=== PATIENT | male | born 1925 | race Caucasian/White ===

== ENCOUNTER 2016-10-31 05:01 | Inpatient (IN) ==
--- OUTSIDE RECORDS SUMMARY | 2016-10-31 05:11 | External Medical Summary | Referral Summary ---
:1925 Author Organization [facility] Address [address] [place] [address] Care Team Providers Name Role Phone Rodolfo Vargas Primary Care Physician Encounter VC Date(s): 06/03/15 - 06/03/15 [facility] [address] [place] [address] - us Discharge Diagnosis: Hyperlipemia Discharge Diagnosis: Hyperthyroidism Discharge Diagnosis: Long-term current use of insulin for diabetes mellitus Discharge Diagnosis: Type 2 diabetes mellitus, uncontrolled Discharge Diagnosis: Diabetic renal disease Discharge Diagnosis: Benign essential hypertension Discharge Disposition: 01-Home or Self Care Attending Physician: Morenita Boyd APRN Admitting Physician: Morenita Boyd APRN Vital Signs Most recent to oldest [Reference Range]: 1 Peripheral Pulse Rate [60-100 bpm] 76 bpm (06/03/15 2:18 PM) Blood Pressure [90-140/60-90 mmHg] 140/60 mmHg (06/03/15 2:18 PM) Problem List Condition Effective Dates Status Health Status Informant Hyperthyroidism(Confirmed) Active Benign essential hypertension Active (disorder)(Confirmed) Diabetic renal disease Active (disorder)(Confirmed) Gangrene back(Confirmed) Active retirement current use of Active insulin(Confirmed) Hyperlipemia(Confirmed) Active Obesity (disorder)(Confirmed) Active Diabetes type 2, controlled(Confirmed) Active Allergies, Adverse Reactions, Alerts Substance Reaction Severity Status penicillin Unknown Active Medications aspirin 81 mg, Oral, Daily, 0 Refill(s) Start Date: 11/13/13 Status: Orderedatenolol 50 mg oral tablet 0.5 tabs, Oral, Daily, # 30 tabs, 3 Refill(s), Pharmacy: [facility], 0.5 tabs Oral Daily Start Date: 08/21/13 Status: OrderedBD UF II SHORT 05/15 SYG See Instructions, INJECT TWICE DAILY, # 100 tabs, 2 Refill(s), eRx: [facility], INJECT TWICE DAILY Start Date: 08/23/13 Status: OrderedCentrum Daily, 0 Refill(s) Start Date: 11/13/13 Status: OrderedFish Oil Oral, 0 Refill(s) Start Date: 02/13/15 Status: OrderedGlucometer strips (DME) DME Item accu check smart test strips check blood sugar 4 times daily, 3 days/ week dx 250.02, See Instructions, # 300 Each, 3 Refill(s), Pharmacy: [facility], accu check smart test strips;check blood sugar 4 times daily, 3 days/week; dx... Start Date: 03/14/14 Status: OrderedHumaLOG Mix 75/25 subcutaneous suspension See Instructions, 19 units in am and 30 units pm SubCutaneous, # 4 vials, 0 Refill(s), other reason (Rx) Start Date: 05/31/14 Status: OrderedI-Hawa oral tablet tabs, Oral, Daily, 0 Refill(s) Start Date: 02/13/15 Status: Orderedmagnesium oxide See Instructions, Oral, 0 Refill(s) Start Date: 11/13/13 Status: Orderedmethimazole 10 mg oral tablet See Instructions, TAKE ONE-HALF TABLET BY MOUTH ONCE DAILY, # 45 tabs, 3 Refill( s), Pharmacy: [id number], TAKE ONE-HALF TABLET BY MOUTH ONCE DAILY Start Date: 06/03/15 Status: Orderednitroglycerin 0 Refill(s) Start Date: 02/13/15 Status: Orderednitroglycerin 0.4 mg sublingual tablet 0.4 mg 1 tabs, SubLingual, q5min, as needed for chest pain, # 100 tabs, 0 Refill (s) Start Date: 06/03/15 Status: OrderedNorvasc 5 mg oral tablet 1 tabs, Oral, Daily, # 30 tabs, 0 Refill(s) Start Date: 11/13/13 Status: OrderedPotaba 500 mg oral tablet 0 Refill(s) Start Date: 11/13/13 Status: OrderedViagra Oral, Daily, 0 Refill(s) Start Date: 02/13/15 Status: OrderedVitamin D with Minerals oral tablet 1 tabs, Oral, Daily, # 30 tabs, 0 Refill(s) Start Date: 11/13/13 Status: OrderedVitamin D3 2000 intl units oral tablet Intl_Units tabs, Oral, Daily, 0 Refill(s) Start Date: 02/13/15 Status: Ordered Results Chemistry Most recent to oldest [Reference Range]: 1 Hgb A1c [4.1-5.6 %] 7.5 % *HI* (06/03/15 3:09 PM) eAvg Glucose 168.6 mg/dL (06/03/15 3:09 PM) Immunizations No data available for this section Procedures Procedure Date Related Diagnosis Body Site Back surgery 1974 Appendectomy 1940 5 bypass heart surgery Social History Social History Type Response Smoking Status Current some day smoker; Type: Cigars Assessment and Plan Extracted from: Title: Office Visit Note Author: Morenita Boyd MENTAL HEALTH CONSULTANT Date: 06/03/15 Assessment/Plan 1.Type 2 diabetes mellitus, uncontrolled 1. check blood sugars fasting and 2 hours after meals 3-7 days per week 2. increase am insulin to 19 units and pm insulin to 30 units 3. rotate injection sites 4. monitor diet and exercise 5. monitor feet daily I discussed the patient with the preceptor. Ordered: Albumin/Creatinine Ratio, Urine Hemoglobin A1c Office Visit Level 4 Est 48882 2.Long-term current use of insulin for diabetes mellitus Ordered: Albumin/Creatinine Ratio, Urine Hemoglobin A1c Office Visit Level 4 Est 53608 3.Benign essential hypertension Ordered: Albumin/Creatinine Ratio, Urine Hemoglobin A1c Office Visit Level 4 Est 38638 4.Diabetic renal disease Ordered: Albumin/Creatinine Ratio, Urine Hemoglobin A1c Office Visit Level 4 Est 35029 5.Hyperlipemia Ordered: Albumin/Creatinine Ratio, Urine Hemoglobin A1c Office Visit Level 4 Est 47828 6.Hyperthyroidism Orders: insulin lispro protamine-insulin lispro, See Instructions, 19 units in am and 30 units pm SubCutaneous, # 4 vials, 0 Refill(s), other reason (Rx) methimazole, See Instructions, TAKE ONE-HALF TABLET BY MOUTH ONCE DAILY, # 45 tabs, 3 Refill(s), Pharmacy: [id number], TAKE ONE-HALF TABLET BY MOUTH ONCE DAILY Extracted from: Title: Ambulatory Patient Education Author: Morenita Boyd APRN Date: 06/02 Obstetrics and Gynecology Diabetes and Sick Day Management Blood sugar (glucose) can be more difficult to control when you are sick. Colds , fever, flu, nausea, vomiting, and diarrhea are all examples of common illnesses that can cause problems for people with d iabetes. Loss of body fluids (dehydration) from fever, vomiting, diarrhea, infection, and the stress of a sickness can all cause blood glucose levels to increase. Because of this, it is very important t o take your diabetes medicines and to eat some form of carbohydrate food when you are sick. Liquid or soft foods are often tolerated, and they help to replace fluids. HOME CARE INSTRUCTIONS These main guidelines are intended for managing a short-term (24 hours or less ) sickness: Take your usual dose of insulin or oral diabetes medicine. An exception would be if you take any form of metformin. If you cannot eat or drink, you can become dehydrated and should not take this medicine. Continue to take your insulin even if you are unable to eat solid foods or are vomiting. Your insulin dose may stay the same, or it may need to be increased when you are sick. You will need to test your blood glucose more often, generally every 2 4 hours. If you have type 1 diabetes, test your urine for ketones every 4 hours. If you have type 2 diabetes, test your ur ine for ketones as directed by your health care provider. Eat some form of food that contains carbohydrates. The carbohydrates can be in solid or liquid form. You should eat 4550 g of carbohydrates every 34 hours. Replace fluids if you have a fever, vomit, or have diarrhea. Ask your health care provider for specific rehydration instructions. Watch carefully for the signs of ketoacidosis if you have type 1 diabetes. Call your health care provider if any of the following symptoms are present, especially in children: Moderate to large ketones in the urine along with a high blood glucose level. Severe nausea. Vomiting. Diarrhea. Abdominal pain. Rapid breathing. Drink extra liquids that do not contain sugar such as water. Be careful with [id number]-rfpbrna medicines. Read the labels. They may contain sugar or types of sugars that can increase your blood glucose level. Food Choices for Illness All of the food choices below contain about 15 g of carbohydrates. Plan ahead and keep some of these foods around. to cup carbonated beverage containing sugar. Carbonated beverages will usually be better tolerated if they are opened and left at room temperature for a few minutes. of a twin frozen ice pop. cup regular gelatin. cup juice. cup ice cream or frozen yogurt. cup cooked cereal. cup sherbet. 1 cup clear broth or soup. 1 cup cream soup. cup regular custard. cup regular pudding. 1 cup sports drink. 1 cup plain yogurt. 1 slice toast. 6 squares saltine crackers. 5 vanilla wafers. SEEK MEDICAL CARE IF: You are unable to drink fluids, even small amounts. You have nausea and vomiting for more than 6 hours. You have diarrhea for more than 6 hours. Your blood glucose level is more than 240 mg/dL, even with additional insulin. There is a change in mental status. You develop an additional serious sickness. You have been sick for 2 days and are not getting better. You have a fever. SEEK IMMEDIATE MEDICAL CARE IF: You have difficulty breathing. You have moderate to large ketone levels. MAKE SURE YOU: Understand these instructions. Will watch your condition. Will get help right away if you are not doing well or get worse. This information is not intended to replace advice given to you by your health care provider. Make sure you discuss any questions you have with your health care provider. Document Released: 02/25/2004 Document Revised: 07/09/2014 Document Reviewed: 08/01/2013 ExitCare Patient Information 2015 [employer], [facility]. No follow up information was provided.
--- OUTSIDE RECORDS SUMMARY | 2016-10-31 05:11 | External Medical Summary ---
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
--- OUTSIDE RECORDS SUMMARY | 2016-10-31 05:11 | External Medical Summary | Referral Summary ---
:1925 Author Organization [facility] Address [address] [place] [address] Care Team Providers Name Role Phone Rodolfo Vargas Primary Care Physician Encounter VC Date(s): 09/27/14 - 09/27/14 [facility] [address] [place] [address] - [place] Discharge Diagnosis: Diabetes type 2, controlled Discharge Diagnosis: assisted current use of insulin Discharge Diagnosis: Benign essential hypertension Discharge Diagnosis: Hyperlipemia Discharge Diagnosis: Hyperthyroidism Discharge Diagnosis: Diabetic renal disease Discharge Disposition: 01-Home or Self Care Attending Physician: Morenita Boyd APRN Admitting Physician: Morenita Boyd APRN Vital Signs Most recent to oldest [Reference Range]: 1 Peripheral Pulse Rate [60-100 bpm] 76 bpm (09/27/14 10:11 AM) Blood Pressure [90-140/60-90 mmHg] 140/80 mmHg (09/27/14 10:11 AM) Problem List Condition Effective Dates Status Health Status Informant Benign essential hypertension Active (disorder)(Confirmed) Diabetic renal disease Active (disorder)(Confirmed) Gangrene back(Confirmed) Active assisted current use of Active insulin(Confirmed) Hyperlipemia(Confirmed) Active Hyperthyroidism(Confirmed) Active Obesity (disorder)(Confirmed) Active Diabetes type 2, controlled(Confirmed) Active Allergies, Adverse Reactions, Alerts Substance Reaction Severity Status penicillin Unknown Active Medications aspirin 0 Refill(s) Start Date: 11/13/13 Status: Orderedatenolol 50 mg oral tablet 0.5 tabs, Oral, Daily, # 30 tabs, 3 Refill(s), Pharmacy: [facility], 0.5 tabs Oral Daily Start Date: 08/21/13 Status: OrderedBD UF II SHORT 05/15 SYG See Instructions, INJECT TWICE DAILY, # 100 tabs, 2 Refill(s), eRx: [facility], INJECT TWICE DAILY Start Date: 08/23/13 Status: OrderedCentrum Daily, 0 Refill(s) Start Date: 11/13/13 Status: OrderedFish Oil Oral, 0 Refill(s) Start Date: 11/13/13 Status: OrderedGlucometer strips (DME) DME Item accu check smart test strips check blood sugar 4 times daily, 3 days/ week dx 250.02, See Instructions, # 300 Each, 3 Refill(s), Pharmacy: [facility], accu check smart test strips;check blood sugar 4 times daily, 3 days/week; dx... Start Date: 03/14/14 Status: OrderedHumaLOG Mix 75/25 subcutaneous suspension See Instructions, 17 units in am and 26 units pm SubCutaneous, # 4 vials, 0 Refill(s), other reason (Rx) Start Date: 05/31/14 Status: OrderedLipitor 40 mg oral tablet 1 tabs, Oral, Daily, # 30 tabs, 0 Refill(s) Start Date: 11/13/13 Status: Orderedlisinopril 20 mg oral tablet tabs, Oral, Daily, 0 Refill(s) Start Date: 11/13/13 Status: Orderedmagnesium oxide See Instructions, Oral, 0 Refill(s) Start Date: 11/13/13 Status: Orderedmethimazole 10 mg oral tablet See Instructions, TAKE ONE-HALF TABLET BY MOUTH ONCE DAILY, # 45 tabs, 1 Refill( s), eRx: [facility], TAKE ONE-HALF TABLET BY MOUTH ONCE DAILY Start Date: 08/22/14 Status: OrderedNorvasc 5 mg oral tablet 1 tabs, Oral, Daily, # 30 tabs, 0 Refill(s) Start Date: 11/13/13 Status: OrderedOcuvite tabs, Oral, Daily, 0 Refill(s) Start Date: 11/13/13 Status: OrderedPotaba 500 mg oral tablet 0 Refill(s) Start Date: 11/13/13 Status: OrderedVitamin D with Minerals oral tablet 1 tabs, Oral, Daily, # 30 tabs, 0 Refill(s) Start Date: 11/13/13 Status: Ordered Results Chemistry Most recent to oldest [Reference Range]: 1 Hgb A1c [4.1-5.6 %] 6.9 % *HI* (09/27/14 10:55 AM) eAvg Glucose 151.3 mg/dL (09/27/14 10:55 AM) Immunizations No data available for this section Procedures Procedure Date Related Diagnosis Body Site Back surgery 1975 Appendectomy 194 5 bypass heart surgery Social History Social History Type Response Smoking Status Current some day smoker; Type: Cigars Assessment and Plan Extracted from: Title: Office Visit Note Author: Morenita Boyd CATALYST SUPERVISOR Date: 09/27/14 Assessment/Plan 1.Diabetes type 2, controlled 1. check blood sugars fasting and 2 hours after meals 3-7 days per week 2. continue same doses of insulin 3. rotate injection sites 4. monitor diet and exercise 5. monitor feet daily I discussed the patient with the preceptor. Ordered: Hemoglobin A1c Office Visit Level 3 Est 99724 2.exterminator current use of insulin Ordered: Office Visit Level 3 Est 50850 3.Benign essential hypertension Ordered: Office Visit Level 3 Est 03172 4.Hyperlipemia Ordered: Office Visit Level 3 Est 80958 5.Hyperthyroidism Ordered: Office Visit Level 3 Est 90108 6.Diabetic renal disease Ordered: Office Visit Level 3 Est 62699 Extracted from: Title: Ambulatory Patient Education Author: Morenita Boyd CATALYST SUPERVISOR Date: 09/27 Family Medicine How to Avoid Diabetes Problems You can do a lot to prevent or slow down diabetes problems. Following your diabetes plan and taking care of yourself can reduce your risk of serious or life-threatening complications. Below, you will fi nd certain things you can do to prevent diabetes problems. MANAGE YOUR DIABETES Follow your caregiver's, nurse educator's, and dietitian's instructions for managing your diabetes. They will teach you the basics of diabetes care. They can help answer questions you may have. Learn ab out diabetes and make healthy choices regarding eating and physical activity. Monitor your blood glucose level regularly. Your caregiver will help you decide how often to check your blood glucose level depending on your treatment goals and how well you are meeting them. DO NOT SMOKE Smoking and diabetes are a dangerous combination. Smoking raises your risk for diabetes problems. If you quit smoking, you will lower your risk for heart attack, stroke, nerve disease, and kidney diseas e. Your cholesterol and your blood pressure levels may improve. Your blood circulation will also improve. If you smoke, ask your caregiver for help in quitting. KEEP YOUR BLOOD PRESSURE UNDER CONTROL Keeping your blood pressure under control will help prevent damage to your eyes , kidneys, heart, and blood vessels. Blood pressure consists of two numbers. The top number should be below 120, and the tu ttom number should be below 80 (120/80). Keep your blood pressure as close to these numbers as you can. If you already have kidney disease, you may want even lower blood pressure to protect your kidneys . Talk to your caregiver to make sure that your blood pressure goal is right for your needs. Meal planning, medicines, and exercise can help you reach your blood pressure target. Have your blood pressure checked at every visit with your caregiver. KEEP YOUR CHOLESTEROL UNDER CONTROL Normal cholesterol levels will help prevent heart disease and stroke. These are the biggest health problems for people with diabetes. Keeping cholesterol levels under control can also help with blood fl ow. Have your cholesterol level checked at least once a year. Meal planning, exercise, and medicines can help you reach your cholesterol targets. SCHEDULE AND KEEP YOUR ANNUAL PHYSICAL EXAMS AND EYE EXAMS Your caregiver will tell you how often he or she wants to see you depending on your plan of treatment. It is important that you keep these appointments so that possible problems can be identified early and complications can be avoided or treated. Every visit with your caregiver should include your weight, blood pressure , and an evaluation of your blood glucose control. Your hemoglobin A1c should be checked: At least twice a year if you are at your goal. Every 3 months if there are changes in treatment. If you are not meeting your goals. Your blood lipids should be checked yearly. You should also be checked yearly to see if you have protein in your urine (microalbumin). Schedule a dilated eye exam if you have type 1 diabetes within 5 years of your diagnosis and then yearly. Schedule a dilated eye exam if you have type 2 diabetes at diagnosis and then yearly. All e xams thereafter can be extended to every 2 to 3 years if one or more exams have been normal. KEEP YOUR VACCINES CURRENT The flu vaccine is recommended yearly. The formula for the vaccine changes every year and needs to be updated for the best protection against current viruses. In addition, you should get a vaccination a gainst pneumonia at least once in your life. However, there are some instances where another vaccine is recommended. Check with your caregiver. TAKE CARE OF YOUR FEET Diabetes may cause you to have a poor blood supply (circulation) to your legs and feet. Because of this, the skin may be thinner, break easier, and heal more slowly. You also may have nerve damage in yo ur legs and feet causing decreased feeling. You may not notice minor injuries to your feet that could lead to serious problems or infections. Taking care of your feet is very important. Visual foot exams are performed at every routine medical visit. The exams check for cuts, injuries, or other problems with the feet. A comprehensive foot exam should be done yearly. This includes visual inspection as well as assessing foot pulses and testing for loss of sensation. You should also do the following: Inspect your feet daily for cuts, calluses, blisters, ingrown toenails, and signs of infection, such as redness, swelling, or pus. Wash and dry your feet thoroughly, especially between the toes. Avoid soaking your feet regularly in hot water baths. Moisturize dry skin with lotion, avoiding areas between your toes. Cut toenails straight across and file the edges. Avoid shoes that do not fit well or have areas that irritate your skin. Avoid going barefooted or wearing only socks. Your feet need protection. TAKE CARE OF YOUR TEETH People with poorly controlled diabetes are more likely to have gum (periodontal ) disease. These infections make diabetes harder to control. Periodontal diseases, if left untreated, can lead to tooth los s. [place] your teeth twice a day, floss, and see your dentist for checkups and cleaning every 6 months, or 2 times a year. ASK YOUR CAREGIVER ABOUT TAKING ASPIRIN Taking aspirin daily is recommended to help prevent cardiovascular disease in people with and without diabetes. Ask your caregiver if this would benefit you and what dose he or she would recommend. DRINK RESPONSIBLY Moderate amounts of alcohol (less than 1 drink per day for adult women and less than 2 drinks per day for adult men) have a minimal effect on blood glucose if ingested with food. It is important to eat food with alcohol to avoid hypoglycemia. People should avoid alcohol if they have a history of alcohol abuse or dependence, if they are , and if they have liver disease, pancreatitis, advanced neuropathy, or severe hypertriglyceridemia. LESSEN STRESS Living with diabetes can be stressful. When you are under stress, your blood glucose may be affected in two ways: Stress hormones may cause your blood glucose to rise. You may be distracted from taking good care of yourself. It is a good idea to be aware of your stress level and make changes that are necessary to help you better manage challenging situations. Support groups, planned relaxation, a hobby you enjoy, meditation , healthy relationships, and exercise all work to lower your stress level. If your efforts do not seem to be helping, get help from your caregiver or a trained mental health professional. Document Released: 11/10/2011 Document Revised: 02/08/2013 Document Reviewed: 11/10/2011 ExitCare Patient Information 2015 [facility], [place] [employer]. This information is not intended to replace advice given to you by your health care provider. Make sure you discuss any questions you have with your health care provider. No follow up information was provided.
--- OUTSIDE RECORDS SUMMARY | 2016-10-31 05:11 | External Medical Summary | Referral Summary ---
:1925 Author Organization [facility] Address [address] [place] [address] Care Team Providers Name Role Phone Rodolfo Vargas Primary Care Physician Encounter VC Date(s): 09/27/14 - 09/27/14 [facility] [address] [place] [address] - [place] Discharge Diagnosis: Diabetes type 2, controlled Discharge Diagnosis: prison current use of insulin Discharge Diagnosis: Benign [...] renal disease Active (disorder)(Confirmed) Gangrene back(Confirmed) Active prison current use of Active insulin(Confirmed) Hyperlipemia(Confirmed) Active Hyperthyroidism(Confirmed) Active Obesity (disorder)(Confirmed) Active Diabetes type 2, controlled(Confirmed) Active Allergies, Adverse Reactions, Alerts Substance Reaction Severity Status penicillin Unknown Active Medications aspirin 0 Refill(s) Start Date: 11/13/13 Status: Orderedatenolol 50 mg oral tablet 0.5 tabs, Oral, Daily, # 30 tabs, 3 Refill(s), Pharmacy: [facility], 0.5 tabs Oral Daily Start Date: 08/21/13 Status: OrderedBD UF II SHORT 05/15 SYG See Instructions, INJECT TWICE DAILY, # 100 tabs, 2 Refill(s), eRx: [facility], INJECT TWICE DAILY Start Date: 08/23/13 Status: OrderedCentrum Daily, 0 Refill(s) Start Date: 11/13/13 Status: OrderedFish Oil Oral, 0 Refill(s) Start Date: 11/13/13 Status: OrderedGlucometer strips (DME) DME Item accu check smart test strips check blood sugar 4 times daily, 3 days/ week dx 250.02, See Instructions, # 300 Each, 3 Refill(s), Pharmacy: [facility], accu check smart test strips;check [...] # 45 tabs, 1 Refill( s), eRx: [facility], TAKE ONE-HALF TABLET BY MOUTH [...] Title: Office Visit Note Author: Morenita Boyd WINDOW REPAIRER Date: 09/27/14 Assessment/Plan 1.Diabetes type 2, controlled 1. check blood sugars fasting and 2 hours after meals 3-7 days per week 2. continue same doses of insulin 3. rotate injection sites 4. monitor diet and exercise 5. monitor feet daily I discussed the patient with the preceptor. Ordered: Hemoglobin A1c Office Visit Level 3 Est 73637 2.prison current use of insulin Ordered: Office Visit Level 3 Est 90786 3.Benign essential hypertension Ordered: Office Visit Level 3 Est 73895 4.Hyperlipemia Ordered: Office Visit Level 3 Est 63892 5.Hyperthyroidism Ordered: Office Visit Level 3 Est 34476 6.Diabetic renal disease Ordered: Office Visit Level 3 Est 42983 Extracted from: Title: Ambulatory Patient Education Author: Morenita Boyd WINDOW REPAIRER Date: 09/27 Family Medicine How to Avoid [...] untreated, can lead to tooth los s. [place] your teeth twice a day, floss, and [...] Document Reviewed: 11/10/2011 ExitCare Patient Information 2015 [employer]. This information is not intended to replace advice given to you by your health care provider. Make sure you discuss any questions you have with your health care provider. No follow up information was provided.
--- OUTSIDE RECORDS SUMMARY | 2016-10-31 05:11 | External Medical Summary | Referral Summary ---
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 Discharge Diagnosis: Diabetes type 2, controlled Discharge Diagnosis: Benign essential hypertension Discharge Diagnosis: Hyperthyroidism Discharge Disposition: 01-Home or Self Care Attending Physician: Morenita Boyd APRN Admitting Physician: Morenita Boyd APRN Vital Signs Most recent to oldest [Reference Range]: 1 Peripheral Pulse Rate [60-100 bpm] 80 bpm (04/24/16 10:55 AM) Blood Pressure [90-140/60-90 mmHg] 140/70 mmHg (04/24/16 10:55 AM) Problem List Condition Effective Dates Status Health Status Informant Hyperthyroidism(Confirmed) Active Benign essential hypertension Active (disorder)(Confirmed) 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 Active (disorder)(Confirmed) Gangrene back(Confirmed) Active senior living current use of Active insulin(Confirmed) Hyperthyroidism(Confirmed) Active Hyperlipemia(Confirmed) Active Obesity (disorder)(Confirmed) Active Diabetes type 2, controlled(Confirmed) Active Allergies, Adverse Reactions, Alerts Substance Reaction Severity Status penicillin Unknown Active Medications aspirin 81 mg, Oral, Daily, 0 Refill(s) Start Date: 11/13/13 Status: Orderedatenolol 50 mg oral tablet 0.5 tabs, Oral, Daily, # 30 tabs, 3 Refill(s), Pharmacy: [facility], 0.5 tabs Oral Daily Start Date: 08/21/13 Status: OrderedBD UF II SHORT 05/15 SYG See Instructions, INJECT TWICE DAILY, # 100 tabs, 2 Refill(s), eRx: [facility], INJECT TWICE DAILY Start Date: 08/23/13 Status: OrderedCentrum Daily, 0 Refill(s) Start Date: 11/13/13 Status: OrderedFish Oil Oral, 0 Refill(s) Start Date: 02/13/15 Status: OrderedGlucometer strips (DME) DME Item accu check smart test strips check blood sugar 4 times daily, 3 days/ week dx 250.02, See Instructions, # 300 Each, 3 Refill(s), Pharmacy: [facility], accu check smart test strips;check blood sugar 4 times daily, 3 days/week; dx... Start Date: 03/14/14 Status: OrderedHumaLOG Mix 75/25 subcutaneous suspension See Instructions, 19 units in am and 30 units pm SubCutaneous, # 4 vials, 0 Refill(s), other reason (Rx) Start Date: 05/31/14 Status: OrderedI-Hawa oral tablet tabs, Oral, Daily, 0 Refill(s) Start Date: 02/13/15 Status: Orderedlisinopril 2.5 mg oral tablet 2.5 mg 1 tabs, Oral, Daily, # 90 tabs, 3 Refill(s), Pharmacy: [facility] Start Date: 09/18/15 Status: Orderedmagnesium oxide See Instructions, Oral, 0 Refill(s) Start Date: 11/13/13 Status: Orderedmethimazole 10 mg oral tablet See Instructions, TAKE ONE-HALF TABLET BY MOUTH ONCE DAILY, # 45 tabs, 3 Refill( s), Pharmacy: [facility], TAKE ONE-HALF TABLET BY MOUTH ONCE DAILY Start Date: 06/03/15 Status: Orderednitroglycerin 0.4 mg sublingual tablet 0.4 [...] [Reference Range]: 1 Hgb A1c [4.1-5.6 %] 7.4 % *HI* (04/24/16 11:40 AM) eAvg Glucose 165.7 mg/dL (04/24/16 11:40 AM) Immunizations No data available for this section Procedures Procedure Date Related Diagnosis Body Site Back surgery 1974 Appendectomy 1940 5 bypass heart surgery Social History Social History Type Response Smoking Status Current some day smoker; Type: Cigars Assessment and Plan Extracted from: Title: Office Visit Note Author: Morenita Boyd CLASSIFIER TENDER Date: 04/24/16 Assessment/Plan 1.Diabetes type 2, controlled 1.check blood sugars fasting and 2 hours after meals 3-7 days per week 2.pt was encouraged to keep current rx at pharmacy 3.continue current doses of insulin 4.rotate injection sites 5.monitor diet and exercise 6.monitor feet daily I discussed the patient with the preceptor. 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 Your blood glucose level can be greatly affected by what you eat. Eating healthier foods in the appropriate amounts throughout the day at about the same time each day will help you control your blood glucose level. It can also help slow or prevent worsening of your diabetes mellitus. Healthy eating may even help you improve the level of your blood pressure and reach or maintain a healthy weight. General recommendations for healthful eating and cooking habits include: Eating meals and snacks regularly. Avoid going long periods of time without eating to lose weight. Eating a diet that consists mainly of plant-based foods, such as fruits , vegetables, nuts, legumes, and whole grains. Using low-heat cooking methods, such as baking, instead of high-heat cooking methods, such as deep frying. Work with your dietitian to make sure you understand how to use the Nutrition Facts information on food labels. HOW CAN FOOD AFFECT ME? Carbohydrates Carbohydrates affect your blood glucose level more than any other type of food. Your dietitian will help you determine how many carbohydrates to eat at each meal and teach you how to count carbohydrates . Counting carbohydrates is important to keep your blood glucose at a healthy level, especially if you are using insulin or taking certain medicines for diabetes mellitus. Alcohol Alcohol can cause sudden decreases in blood glucose (hypoglycemia), especially if you use insulin or take certain medicines for diabetes mellitus. Hypoglycemia can be a life-threatening condition. Sympt oms of hypoglycemia (sleepiness, dizziness, and disorientation) are similar to symptoms of having too much alcohol. If your health care provider has given you approval to drink alcohol, do so in moderation and use the following guidelines: Women should not have more than one drink per day, and men should not have more than two drinks per day. One drink is equal to: 12 oz of beer. 5 oz of wine. 1 oz of hard liquor. Do not drink on an empty stomach. Keep yourself hydrated. Have water, diet soda, or unsweetened iced tea. Regular soda, juice, and other mixers might contain a lot of carbohydrates and should be counted. WHAT FOODS ARE NOT RECOMMENDED? As you make food choices, it is important to remember that all foods are not the same. Some foods have fewer nutrients per serving than other foods, even though they might have the same number of calori es or carbohydrates. It is difficult to get your body what it needs when you eat foods with fewer nutrients. Examples of foods that you should avoid that are high in calories and carbohydrates but low in nutrients include: Trans fats (most processed foods list trans fats on the Nutrition Facts label). Regular soda. Juice. Candy. Sweets, such as cake, pie, doughnuts, and cookies. Fried foods. WHAT FOODS CAN I EAT? Eat nutrient-rich foods, which will nourish your body and keep you healthy. The food you should eat also will depend on several factors, including: The calories you need. The medicines you take. Your weight. Your blood glucose level. Your blood pressure level. Your cholesterol level. You should eat a variety of foods, including: Protein. Lean cuts of meat. Proteins low in saturated fats, such as fish, egg whites, and beans. Avoid processed meats. Fruits and vegetables. Fruits and vegetables that may help control blood glucose levels, such as apples, mangoes, and yams. Dairy products. Choose fat-free or low-fat dairy products, such as milk, yogurt, and cheese. Grains, bread, pasta, and rice. Choose whole grain products, such as multigrain bread, whole oats, and brown rice. These foods may help control blood pressure. Fats. Foods containing healthful fats, such as nuts, avocado, olive oil, canola oil, and fish. DOES EVERYONE WITH DIABETES MELLITUS HAVE THE SAME MEAL PLAN? Because every person with diabetes mellitus is different, there is not one meal plan that works for everyone. It is very important that you meet with a dietitian who will help you create a meal plan that is just right for you. This information is not intended to replace advice given to you by your health care provider. Make sure you discuss any questions you have with your health care provider. Document Released: 11/19/2005 Document Revised: 03/15/2015 Document Reviewed: 01/19/2014 [employer] Interactive Patient Education 2016 [employer] No follow up information was provided.
--- OUTSIDE RECORDS SUMMARY | 2016-10-31 05:11 | External Medical Summary | Referral Summary ---
:1925 Author Organization [facility] Address [address] [place] [address] Care Team Providers Name Role Phone Rodolfo Vargas Primary Care Physician Encounter VC Date(s): 02/13/15 - 02/13/15 [facility] [address] [place] [address] - [place] Discharge Diagnosis: Hyperthyroidism Discharge Diagnosis: Well controlled type 2 diabetes mellitus Discharge Diagnosis: Hyperlipidemia Discharge Disposition: 01-Home or Self Care Attending Physician: Rl Adkins MD Admitting Physician: Rl Adkins MD Vital Signs Most recent to oldest [Reference Range]: 1 Peripheral Pulse Rate [60-100 bpm] 62 bpm (02/13/15 3:56 PM) Blood Pressure [90-140/60-90 mmHg] 130/80 mmHg (02/13/15 3:56 PM) Problem List Condition Effective Dates Status Health Status Informant Benign essential hypertension Active (disorder)(Confirmed) Diabetic renal disease Active (disorder)(Confirmed) Gangrene back(Confirmed) Active long-term current use of Active insulin(Confirmed) Hyperlipemia(Confirmed) Active Hyperthyroidism(Confirmed) Active Obesity (disorder)(Confirmed) Active Diabetes type 2, controlled(Confirmed) Active Allergies, Adverse Reactions, Alerts Substance Reaction Severity Status penicillin Unknown Active Medications aspirin 0 Refill(s) Start Date: 11/13/13 Status: Orderedatenolol 50 mg oral tablet 0.5 tabs, Oral, Daily, # 30 tabs, 3 Refill(s), Pharmacy: [facility], 0.5 tabs Oral Daily Start Date: 08/21/13 Status: OrderedBD UF II SHORT 3/10 SYG See Instructions, INJECT TWICE DAILY, # 100 tabs, 2 Refill(s), eRx: [facility], INJECT TWICE DAILY Start Date: 08/23/13 Status: OrderedCentrum Daily, 0 Refill(s) Start Date: 11/13/13 Status: OrderedFish Oil Oral, 0 Refill(s) Start Date: 11/13/13 Status: OrderedFish Oil Oral, 0 Refill(s) Start Date: 02/13/15 Status: OrderedGlucometer strips (DME) DME Item accu check smart test strips check blood sugar 4 times daily, 3 days/ week dx 250.02, See Instructions, # 300 Each, 3 Refill(s), Pharmacy: [facility], accu check smart test strips;check blood sugar 4 times daily, 3 days/week; dx... Start Date: 03/14/14 Status: OrderedHumaLOG Mix 75/25 subcutaneous suspension See Instructions, 17 units in am and 28 units pm SubCutaneous, # 4 vials, 0 Refill(s), other reason (Rx) Start Date: 05/31/14 Status: OrderedI-Hawa oral tablet tabs, Oral, Daily, 0 Refill(s) Start Date: 02/13/15 Status: OrderedLipitor 40 mg oral tablet 1 tabs, Oral, Daily, # 30 tabs, 0 Refill(s) Start Date: 11/13/13 Status: Orderedmagnesium oxide See Instructions, Oral, 0 Refill(s) Start Date: 11/13/13 Status: Orderedmethimazole 10 mg oral tablet See Instructions, TAKE ONE-HALF TABLET BY MOUTH ONCE DAILY, # 45 tabs, 1 Refill( s), eRx: [facility], TAKE ONE-HALF TABLET BY MOUTH ONCE DAILY Start Date: 08/22/14 Status: Orderednitroglycerin 0 Refill(s) Start Date: 02/13/15 Status: OrderedNorvasc 5 mg oral tablet 1 [...] Most recent to oldest [Reference Range]: 1 Sodium Lvl [135-144 mEq/L] 141 mEq/L (02/13/15 4:47 PM) Potassium Lvl [3.5-5.2 mEq/L] 4.4 mEq/L (02/13/15 4:47 PM) Chloride [99-111 mEq/L] 106 mEq/L (02/13/15 4:47 PM) CO2 [23-31 mEq/L] 26 mEq/L (02/13/15 4:47 PM) AGAP [3-20] 9 (02/13/15 4:47 PM) BUN [8-26 mg/dL] 35 mg/dL *HI* (02/13/15 4:47 PM) Glucose Lvl [70-99 mg/dL] 113 mg/dL *HI* (02/13/15 4:47 PM) Creatinine Lvl [0.72-1.25 mg/dL] 1.48 mg/dL *HI* (02/13/15 4:47 PM) eGFR [>60 mL/min] 45 mL/min 1 *ABN* (02/13/15 4:47 PM) Calcium Lvl [8.9-10.5 mg/dL] 9.8 mg/dL (02/13/15 4:47 PM) Albumin Lvl [3.4-4.8 gm/dL] 4.1 gm/dL (02/13/15 4:47 PM) Total Protein [6.2-8.1 gm/dL] 7.1 gm/dL (02/13/15 4:47 PM) Globulin [1.8-4.0 gm/dL] 3.0 gm/dL (02/13/15 4:47 PM) ALT [0-55 U/L] 16 U/L (02/13/15 4:47 PM) AST [5-34 U/L] 24 U/L (02/13/15 4:47 PM) Alk Phos [40-150 U/L] 71 U/L (02/13/15 4:47 PM) Bili Total [0.2-1.2 mg/dL] 0.8 mg/dL (02/13/15 4:47 PM) TSH with Reflex Free T4 [0.35-4.94] 2.53 (02/13/15 4:47 PM) 1Result Comment: Multiply eGFR results by 1.21 for race. Immunizations No data available for this section Procedures Procedure Date Related Diagnosis Body Site Back surgery 1974 Appendectomy 1940 5 bypass heart surgery Social History Social History Type Response Smoking Status Current some day smoker; Type: Cigars Assessment and Plan Extracted from: Title: Office Visit Note Author: Rl Adkins MD Date: 02/13/15 Assessment/Plan 1.Well controlled type 2 diabetes mellitus glycemic control on target. continue same insulin dose. hba1c today. Ordered: Comprehensive Metabolic Panel Hemoglobin A1c TSH with Reflex Free T4 2.Hyperthyroidism check tsh. will adjust methimazole dose if needed. Ordered: Comprehensive Metabolic Panel Hemoglobin A1c TSH with Reflex Free T4 3.Hyperlipidemia continue same lipid management. f/u in3 months. Ordered: Comprehensive Metabolic Panel Hemoglobin A1c TSH with Reflex Free T4
--- OUTSIDE RECORDS SUMMARY | 2016-10-31 05:11 | External Medical Summary | Referral Summary ---
:1925 Author Organization [facility] Address [address] [place] [address] Care Team Providers Name Role Phone Rodolfo Vargas Primary Care Physician Encounter VC Date(s): 09/27/14 - 09/27/14 [facility] [address] [place] [address] - [place] Discharge Diagnosis: Diabetes type 2, controlled Discharge Diagnosis: [facility] current use of insulin Discharge Diagnosis: Benign [...] renal disease Active (disorder)(Confirmed) Gangrene back(Confirmed) Active [facility] current use of Active insulin(Confirmed) Hyperlipemia(Confirmed) Active Hyperthyroidism(Confirmed) Active Obesity (disorder)(Confirmed) Active Diabetes type 2, controlled(Confirmed) Active Allergies, Adverse Reactions, Alerts Substance Reaction Severity Status penicillin Unknown Active Medications aspirin 0 Refill(s) Start Date: 11/13/13 Status: Orderedatenolol 50 mg oral tablet 0.5 tabs, Oral, Daily, # 30 tabs, 3 Refill(s), Pharmacy: [facility], 0.5 tabs Oral Daily Start Date: 08/21/13 Status: OrderedBD UF II SHORT 05/15 SYG See Instructions, INJECT TWICE DAILY, # 100 tabs, 2 Refill(s), eRx: [facility], INJECT TWICE DAILY Start Date: 08/23/13 Status: OrderedCentrum Daily, 0 Refill(s) Start Date: 11/13/13 Status: OrderedFish Oil Oral, 0 Refill(s) Start Date: 11/13/13 Status: OrderedGlucometer strips (DME) DME Item accu check smart test strips check blood sugar 4 times daily, 3 days/ week dx 250.02, See Instructions, # 300 Each, 3 Refill(s), Pharmacy: [facility], accu check smart test [...] # 45 tabs, 1 Refill( s), eRx: [facility], TAKE ONE-HALF TABLET BY [...] Title: Office Visit Note Author: Morenita Boyd SUPERVISOR URANIUM PROCESSING Date: 09/27/14 Assessment/Plan 1.Diabetes type 2, controlled 1. check blood sugars fasting and 2 hours after meals 3-7 days per week 2. continue same doses of insulin 3. rotate injection sites 4. monitor diet and exercise 5. monitor feet daily I discussed the patient with the preceptor. Ordered: Hemoglobin A1c Office Visit Level 3 Est 17352 2.[facility] current use of insulin Ordered: Office Visit Level 3 Est 81559 3.Benign essential hypertension Ordered: Office Visit Level 3 Est 60601 4.Hyperlipemia Ordered: Office Visit Level 3 Est 87245 5.Hyperthyroidism Ordered: Office Visit Level 3 Est 99572 6.Diabetic renal disease Ordered: Office Visit Level 3 Est 66737 Extracted from: Title: Ambulatory Patient Education Author: Morenita Boyd SUPERVISOR URANIUM PROCESSING Date: 09/27 Family Medicine How to Avoid [...] untreated, can lead to tooth los s. [place] your teeth twice a day, floss, and [...] Document Reviewed: 11/10/2011 ExitCare Patient Information 2015 [employer]. This information is not intended to replace advice given to you by your health care provider. Make sure you discuss any questions you have with your health care provider. No follow up information was provided.
--- OUTSIDE RECORDS SUMMARY | 2016-10-31 05:11 | External Medical Summary ---
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 59388022 Problem Chronic kidney N18.9 Active 588698416 disease Problem Bilateral carotid I65.23 Active 973091138427984 artery stenosis Problem Aortic stenosis I35.0 Active 90831881 Problem Carotid stenosis, I65.21 Active 108750981525183 right Problem Irregular heart beat I49.9 Active 480423844 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
--- OUTSIDE RECORDS SUMMARY | 2016-10-31 05:12 | External Medical Summary | Referral Summary ---
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 Discharge Disposition: 01-Home or Self Care Attending Physician: Morenita Boyd APRN Admitting Physician: Morenita Boyd APRN Vital Signs Most recent to oldest [Reference Range]: 1 Peripheral Pulse Rate [60-100 bpm] 58 bpm *LOW* (09/12/15 2:23 PM) Blood Pressure [90-140/60-90 mmHg] 132/64 mmHg (09/12/15 2:23 PM) Problem List Condition Effective Dates Status Health Status Informant Hyperthyroidism(Confirmed) Active Benign essential hypertension Active (disorder)(Confirmed) 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 Active (disorder)(Confirmed) Gangrene back(Confirmed) Active skilled nursing current use of Active insulin(Confirmed) Hyperlipemia(Confirmed) Active Obesity (disorder)(Confirmed) Active Diabetes type 2, controlled(Confirmed) Active Allergies, Adverse Reactions, Alerts Substance Reaction Severity Status penicillin Unknown Active Medications aspirin 81 mg, Oral, Daily, 0 Refill(s) Start Date: 11/13/13 Status: Orderedatenolol 50 mg oral tablet 0.5 tabs, Oral, Daily, # 30 tabs, 3 Refill(s), Pharmacy: [facility], 0.5 tabs Oral Daily Start Date: 08/21/13 Status: OrderedBD UF II SHORT 05/15 SYG See Instructions, INJECT TWICE DAILY, # 100 tabs, 2 Refill(s), eRx: [facility], INJECT TWICE DAILY Start Date: 08/23/13 Status: OrderedCentrum Daily, 0 Refill(s) Start Date: 11/13/13 Status: OrderedFish Oil Oral, 0 Refill(s) Start Date: 02/13/15 Status: OrderedGlucometer strips (DME) DME Item accu check smart test strips check blood sugar 4 times daily, 3 days/ week dx 250.02, See Instructions, # 300 Each, 3 Refill(s), Pharmacy: [facility], accu check smart [...] # 45 tabs, 3 Refill( s), Pharmacy: [facility], TAKE ONE-HALF TABLET [...] [Reference Range]: 1 Sodium Lvl [135-144 mEq/L] 142 mEq/L (09/12/15 3:04 PM) Potassium Lvl [3.5-5.2 mEq/L] 4.1 mEq/L (09/12/15 3:04 PM) Chloride [99-111 mEq/L] 107 mEq/L (09/12/15 3:04 PM) CO2 [23-31 mEq/L] 26 mEq/L (09/12/15 3:04 PM) AGAP [3-20] 9 (09/12/15 3:04 PM) BUN [8-26 mg/dL] 28 mg/dL *HI* (09/12/15 3:04 PM) Glucose Lvl [70-99 mg/dL] 74 mg/dL (09/12/15 3:04 PM) Creatinine Lvl [0.72-1.25 mg/dL] 1.55 mg/dL *HI* (09/12/15 3:04 PM) eGFR [>60 mL/min] 42 mL/min 1 *ABN* (09/12/15 3:04 PM) Calcium Lvl [8.9-10.5 mg/dL] 9.9 mg/dL (09/12/15 3:04 PM) Hgb A1c [4.1-5.6 %] 7.2 % *HI* (09/12/15 3:04 PM) eAvg Glucose 159.9 mg/dL (09/12/15 3:04 PM) 1Result Comment: Multiply eGFR results by 1.21 for race. Immunizations No data available for this section Procedures Procedure Date Related Diagnosis Body Site Back surgery 1975 Appendectomy 194 5 bypass heart surgery Social History Social History Type Response Smoking Status Current some day smoker; Type: Cigars Assessment and Plan Extracted from: Title: Office Visit Note Author: Morenita Boyd APRN Date: 09/12/15 Assessment/Plan 1.Diabetes type 2, controlled 1. check blood sugars fasting and 2 hours after meals 3-7 days per week 2. continue current doses of insulin 3. rotate injection sites and alternate sites discussed 4. monitor diet and exercise 5. monitor feet daily I discussed the patient with the preceptor. Ordered: Albumin/Creatinine Ratio, Urine Basic Metabolic Panel Hemoglobin A1c Office Visit Level 3 Est 33073 Return to Clinic 2.Benign essential hypertension Ordered: Albumin/Creatinine Ratio, Urine Basic Metabolic Panel Hemoglobin A1c Office Visit Level 3 Est 59335 Return to Clinic 3.Diabetic renal disease Ordered: Albumin/Creatinine Ratio, Urine Basic Metabolic Panel Hemoglobin A1c Office Visit Level 3 Est 73981 Return to Clinic 4.skilled nursing current use of insulin Ordered: Albumin/Creatinine Ratio, Urine Basic Metabolic Panel Hemoglobin A1c Office Visit Level 3 Est 85990 Return to Clinic 5.Hyperthyroidism Ordered: Albumin/Creatinine Ratio, Urine Basic Metabolic Panel Hemoglobin A1c Office Visit Level 3 Est 23236 Return to Clinic 6.Hyperlipemia Ordered: Return to Clinic 7.Diabetic peripheral neuropathy Ordered: Return to Clinic Extracted from: Title: Ambulatory Patient Education Author: Morenita Boyd APRN Date: Obstetrics and Gynecology Diabetes and Sick Day [...] sugar such as water. Be careful with [id number] medicines. Read the labels. They may contain [...] care provider. Document Released: 02/25/2004 Document Revised: 03/15/2015 Document Reviewed: 08/01/2013 ExitCare Patient Information 2016 [facility], [facility]. No follow up information was provided. Referrals to Other Providers Referred by: Morenita Boyd APRN
--- OUTSIDE RECORDS SUMMARY | 2016-10-31 05:12 | External Medical Summary | Continuity of Care Document ---
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 09/12/2015 Morenita Boyd Final E11.42 Type 2 diabetes L mellitus with diabetic polyneuropathy 09/12/2015 Morenita Boyd Final E11.9 Type 2 diabetes L mellitus without complications 09/12/2015 Morenita Boyd Final E78.2 Mixed hyperlipidemia L 09/12/2015 Morenita Boyd Final I10 Essential (primary) L hypertension 09/12/2015 Morenita Boyd Final 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 12/23/2015 Rl Adkins Final E11.9 Type 2 diabetes Hani mellitus without complications 12/23/2015 Rl Adkins Final E05.90 Thyrotoxicosis, Hani unspecified without thyrotoxic crisis or storm 04/24/2016 Morenita Boyd Final E11.9 Type 2 diabetes L mellitus without complications 04/24/2016 Morenita Boyd I10 Essential (primary) L hypertension 04/24/2016 Morenita Boyd Final Z79.4 jail (current) L use of insulin 04/24/2016 Morenita Boyd Final 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 08/24/2016 Rl Adkins Final E11.65 Type 2 diabetes Hani mellitus with hyperglycemia 08/24/2016 Rl Adkins Final E05.80 Other thyrotoxicosis Hani without thyrotoxic crisis or storm Procedures Code Description Performed By Performed On 09/12/2015 39864 Office or other outpatient visit for the evaluation and management of an established patient, which requires at least 2 of these 3 galeana components: An expanded problem focused history; An expanded prob 12/23/2015 92140 Office or other outpatient visit for the evaluation and management of an established patient, which requires at least 2 of these 3 galeana components: An expanded problem focused history; An expanded prob 04/24/2016 88105 Office or other outpatient visit for the evaluation and management of an established patient, which requires at least 2 of these 3 galeana components: An expanded problem focused history; An expanded prob 08/24/2016 99172 Office or other outpatient visit for the evaluation and management of an established patient, which requires at least 2 of these 3 galeana components: A detailed history; A detailed examination; Medical d Results Test Result Range Basic Metabolic Panel (BMP) - 09/12/15 15:04 Anion Gap 9 NA 3-20 BUN 28 mg/dL 8-26 Calcium 9.9 mg/dL 8.9-10.5 Chloride 107 mEq/L 99-111 CO2 26 mEq/L 23-31 Creatinine 1.55 mg/dL 0.72-1.25 Glucose 74 mg/dL 70-99 Potassium 4.1 mEq/L 3.5-5.2 Sodium 142 mEq/L 135-144 eGFR - 09/12/15 15:04 eGFR 42 mL/min >60 Hemoglobin A1C - 09/12/15 15:04 Hemoglobin A1C 7.2 % 4.1-5.6 Estimated Average Glucose - 09/12/15 15:04 Estimated Average Glucose 159.9 mg/dL Albumin/Creatinine Ratio, Urine - 09/12/15 15:24 Alb/Creat Ratio, Urine 1990.0 mg/g 0.0-29.0 Albumin mg/dL, Urine 179.1 mg/dL 0.0-1.7 Creatinine mg/dL, Urine 90 mg/dL Comprehensive Metabolic Panel (CMP) - 12/23/15 11:00 Albumin 3.9 g/dL 3.4-4.8 Alkaline Phosphatase 70 U/L 40-150 ALT (SGPT) 18 U/L 0-55 Anion Gap 9 NA 3-20 AST (SGOT) 22 U/L 5-34 Bilirubin Total 0.7 mg/dL 0.2-1.2 BUN 35 mg/dL 8-26 Calcium 9.6 mg/dL 8.9-10.5 Chloride 107 mEq/L 99-111 CO2 26 mEq/L 23-31 Creatinine 1.89 mg/dL 0.72-1.25 Globulin 2.7 g/dL 1.8-4.0 Glucose 122 mg/dL 70-99 Potassium 4.5 mEq/L 3.5-5.2 Protein 6.6 g/dL 6.0-7.6 Sodium 142 mEq/L 135-144 eGFR - 12/23/15 11:00 eGFR 34 mL/min >60 TSH with Reflex Free T4 - 12/23/15 11:00 TSH with Reflex Free T4 2.92 uIU/mL 0.35-4.94 Hemoglobin A1C - 12/23/15 11:00 Hemoglobin A1C 7.0 % 4.1-5.6 Estimated Average Glucose - 12/23/15 11:00 Estimated Average Glucose 154.2 mg/dL Hemoglobin A1C - 04/24/16 11:40 Hemoglobin A1C 7.4 % 4.1-5.6 Estimated Average Glucose - 04/24/16 11:40 Estimated Average Glucose 165.7 mg/dL Comprehensive Metabolic Panel (CMP) - 08/24/16 12:05 Albumin 4.0 g/dL 3.4-4.8 Alkaline Phosphatase 79 U/L 40-150 ALT (SGPT) 16 U/L 0-55 Anion Gap 8 mEq/L 3-20 AST (SGOT) 22 U/L 5-34 Bilirubin Total 0.7 mg/dL 0.2-1.2 BUN 27 mg/dL 8-26 Calcium 9.7 mg/dL 8.4-10.2 Chloride 104 mEq/L 99-111 CO2 29 mEq/L 23-31 Creatinine 1.56 mg/dL 0.72-1.25 Globulin 3.0 g/dL 1.8-4.0 Glucose 180 mg/dL 70-99 Potassium 4.5 mEq/L 3.5-5.2 Protein 7.0 g/dL 6.0-7.6 Sodium 141 mEq/L 135-144 eGFR - 08/24/16 12:05 eGFR 42 mL/min >60 TSH - 08/24/16 12:05 TSH 3.84 uIU/mL 0.35-4.94 Free T4 - 08/24/16 12:05 Free T4 0.9 ng/dL 0.7-1.5 Hemoglobin A1C - 08/24/16 12:05 Hemoglobin A1C 7.9 % 4.1-5.6 Estimated Average Glucose - 08/24/16 12:05 Estimated Average Glucose 180.0 mg/dL Encounters ACCT No. Visit Discharge Status Pt. Type Provider Facility Loc./Unit Complaint Date/Time [id number] 08/24/2016 08/24/2016 DIS Outpatient Zayour, [facility] DM FU 51 10:12:00 23:59:00 Rl Randhawa [facility] [id number] 04/24/2016 04/24/2016 DIS Outpatient Oliver, [facility] DM FU 25 10:42:00 23:59:00 [facility]ita L [facility] [id number] 12/23/2015 12/23/2015 DIS Outpatient Zayour, [facility] DM FU 68 10:10:00 23:59:00 Rl Sydnee [facility] [id number] 09/12/2015 09/12/2015 DIS Outpatient Oliver, [facility] DM FU 23 14:15:00 23:59:00 [facility]ita L [facility] [id number] 06/03/2015 06/03/2015 DIS Outpatient Oliver, [facility] DM FU 06 14:06:00 23:59:00 [facility] L [facility] [id number] 02/13/2015 02/13/2015 DIS Outpatient Zayour, [facility] SOV /4 MO 42 15:35:00 23:59:00 Rl Leei [facility] [id number] 09/27/2014 09/27/2014 DIS Outpatient Oliver, [facility] DM FU 22 09:59:00 23:59:00 [facility] L [facility] [id number] 02/12/2014 02/12/2014 DIS Outpatient Oliver, [facility] En 3 MONTH 35 10:45:00 23:59:00 Morenita Leei [facility] Clinic [id number] 05/31/2014 Document 88 09:43:00 Registrati on
--- OUTSIDE RECORDS SUMMARY | 2016-10-31 05:12 | External Medical Summary ---
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) Problem Hypertension, 401.9 Active 28652504 Unspecified Problem 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 106156189 artery bypass graft) Assessment 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 Mar, Active 440888729984746 cardiovascular 2017 disease (ASCVD) Problem RBBB I45.10 Active 44147637 Problem Chronic kidney N18.9 Active 349752129 disease Problem Diabetes mellitus E11.9 Active 645870488 type II, controlled Problem Hyperlipidemia E78.5 Active 34326455 Problem Hyperlipidemia 272.4 Active 03546337 Problem Diabetes Mellitus, 250.00 Active 946877336 Type II, Not Stated As Uncontrolled Problem Chronic Kidney 593.9 Active 906478002 Disease Problem RBBB 426.4 Active 03513385 Problem Murmur 785.2 Active 465316860 Problem Carotid Bruit 785.9 Active 707721529 Problem S/P CABG V45.81 Active 939677396 Problem Aortic stenosis 424.1 Active 60166226 Problem Coronary Artery 414.01 Active 41257204 Disease Problem Bilateral carotid I65.23 Active 656650342375456 artery stenosis ALLERGIES Substance Reaction Event Type Date Status Penicillin Unknown Drug Allergy Mar, Active SOCIAL HISTORY No smoking Hx information available PLAN OF CARE VITAL SIGNS Height 73 in 2016-04-03 Weight 226 lbs 2016-04-03 BMI 29.81 kg/m2 2016-04-03 Oximetry unable % 2016-04-03 Heart Rate unable /min 2016-04-03 Blood pressure systolic 132 mm Hg 2016-04-03 Blood pressure diastolic 79 mm Hg 2016-04-03 MEDICATIONS Medication Instructions Dosage Frequency Start End Duration Status Date Date Viagra 100 MG Orally prn 1 tablet 30 day(s) Active Insulin Active Syringe-Needle U-100 31G X 5/16 Ibuprofen 200 MG Orally prn 1 tablet as Active needed Tylenol 325 MG Orally prn 1 tablet as Active needed Nitroglycerin 0.4 Active MG ASA 81 mg 81MG Oral qd 1 tab 24h Active Cialis 10 MG 1 tablet Active Atenolol 50 MG Orally Once a 1/2tab 24h Active day Multivitamins Orally qd as directed 24h Active Novolin 70/30 Active (70-30) 100 UNIT/ML Amlodipine Orally Once a 1 tablet 24h Active Besylate 5 MG day Methimazole 10 MG Orally qd 1/2 tablet 24h 30 day(s) Active Fish Oil 1000 MG Orally Once a 1 capsule 24h 30 day(s) Active day Vitamin D3 2000 Orally Once a 1 capsule 24h Active UNIT day Lipitor 40 MG Orally Once a 1/2 tab 24h Active day RESULTS No Results PROCEDURES Procedure Date Ordered Related Diagnosis Body Site Office Visit, Est Pt., Level 4 Apr 03, 2016 IMMUNIZATIONS No Known Immunizations
--- OUTSIDE RECORDS SUMMARY | 2016-10-31 05:12 | External Medical Summary | Referral Summary ---
:1925 Author Organization [facility] Address [address] [place] [address] Care Team Providers Name Role Phone Rodolfo Vargas Primary Care Physician Encounter VC Date(s): 12/23/15 - 12/23/15 [facility] [address] [place] [address] - [place] Discharge Diagnosis: Hyperthyroidism Discharge Diagnosis: Controlled type 2 diabetes mellitus Discharge Disposition: 01-Home or Self Care Attending Physician: Rl Adkins MD Admitting Physician: Rl Adkins MD Vital Signs Most recent to oldest [Reference Range]: 1 Peripheral Pulse Rate [60-100 bpm] 60 bpm (12/23/15 10:14 AM) Blood Pressure [90-140/60-90 mmHg] 118/62 mmHg (12/23/15 10:14 AM) Problem List Condition Effective Dates Status Health Status Informant Hyperthyroidism(Confirmed) Active Benign essential hypertension Active (disorder)(Confirmed) 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 Active (disorder)(Confirmed) Gangrene back(Confirmed) Active correction current use of Active insulin(Confirmed) Hyperthyroidism(Confirmed) Active Hyperlipemia(Confirmed) Active Obesity (disorder)(Confirmed) Active Diabetes type 2, controlled(Confirmed) Active Allergies, Adverse Reactions, Alerts Substance Reaction Severity Status penicillin Unknown Active Medications aspirin 81 mg, Oral, Daily, 0 Refill(s) Start Date: 11/13/13 Status: Orderedatenolol 50 mg oral tablet 0.5 tabs, Oral, Daily, # 30 tabs, 3 Refill(s), Pharmacy: [facility], 0.5 tabs Oral Daily Start Date: 08/21/13 Status: OrderedBD UF II SHORT 05/15 SYG See Instructions, INJECT TWICE DAILY, # 100 tabs, 2 Refill(s), eRx: [facility], INJECT TWICE DAILY Start Date: 08/23/13 Status: OrderedCentrum Daily, 0 Refill(s) Start Date: 11/13/13 Status: OrderedFish Oil Oral, 0 Refill(s) Start Date: 02/13/15 Status: OrderedGlucometer strips (DME) DME Item accu check smart test strips check blood sugar 4 times daily, 3 days/ week dx 250.02, See Instructions, # 300 Each, 3 Refill(s), Pharmacy: [facility], accu check smart test [...] Daily, # 90 tabs, 3 Refill(s), Pharmacy: [facility] Start Date: 09/18/15 Status: Orderedmagnesium oxide See Instructions, Oral, 0 Refill(s) Start Date: 11/13/13 Status: Orderedmethimazole 10 mg oral tablet See Instructions, TAKE ONE-HALF TABLET BY MOUTH ONCE DAILY, # 45 tabs, 3 Refill( s), Pharmacy: [facility], TAKE ONE-HALF TABLET BY [...] 1 Sodium Lvl [135-144 mEq/L] 142 mEq/L (12/23/15 11:00 AM) Potassium Lvl [3.5-5.2 mEq/L] 4.5 mEq/L (12/23/15 11:00 AM) Chloride [99-111 mEq/L] 107 mEq/L (12/23/15 11:00 AM) CO2 [23-31 mEq/L] 26 mEq/L (12/23/15 11:00 AM) AGAP [3-20] 9 (12/23/15 11:00 AM) BUN [8-26 mg/dL] 35 mg/dL *HI* (12/23/15 11:00 AM) Glucose Lvl [70-99 mg/dL] 122 mg/dL *HI* (12/23/15 11:00 AM) Creatinine Lvl [0.72-1.25 mg/dL] 1.89 mg/dL *HI* (12/23/15 11:00 AM) eGFR [>60 mL/min] 34 mL/min 1 *ABN* (12/23/15 11:00 AM) Calcium Lvl [8.9-10.5 mg/dL] 9.6 mg/dL (12/23/15 11:00 AM) Albumin Lvl [3.4-4.8 gm/dL] 3.9 gm/dL (12/23/15 11:00 AM) Total Protein [6.0-7.6 gm/dL] 6.6 gm/dL (12/23/15 11:00 AM) Globulin [1.8-4.0 gm/dL] 2.7 gm/dL (12/23/15 11:00 AM) ALT [0-55 U/L] 18 U/L (12/23/15 11:00 AM) AST [5-34 U/L] 22 U/L (12/23/15 11:00 AM) Alk Phos [40-150 U/L] 70 U/L (12/23/15 11:00 AM) Bili Total [0.2-1.2 mg/dL] 0.7 mg/dL (12/23/15 11:00 AM) TSH with Reflex Free T4 [0.35-4.94] 2.92 (12/23/15 11:00 AM) 1Result Comment: Multiply eGFR results by 1.21 for race. Immunizations No data available for this section Procedures Procedure Date Related Diagnosis Body Site Back surgery 1974 Appendectomy 1940 5 bypass heart surgery Social History Social History Type Response Smoking Status Current some day smoker; Type: Cigars Assessment and Plan Extracted from: Title: Office Visit Note Author: Rl Adkins MD Date: 12/23/15 Assessment/Plan 1.Controlled type 2 diabetes mellitus continue same insulin dose. check a1c. check cmp. Ordered: Comprehensive Metabolic Panel Hemoglobin A1c TSH with Reflex Free T4 2.Hyperthyroidism check tsh, ft4. will adjust methimazole dose accordingly. Ordered: Comprehensive Metabolic Panel Hemoglobin A1c TSH with Reflex Free T4
--- OUTSIDE RECORDS SUMMARY | 2016-10-31 05:12 | External Medical Summary ---
:1925 Author Organization [employer] Care Team Providers Name Role Phone Jonnie Ivory Provider Role Unavailable Allergies, Adverse Reactions, Alerts Substance Reaction Event Type Penicillin Info Not Available Drug Allergy Problems Problem Type Condition Code Onset Dates Condition Status Assessment Aortic stenosis I35.0 Active Assessment Essential (primary) hypertension I10 Active Assessment Chronic kidney disease N18.9 Active Assessment RBBB I45.10 Active Problem Carotid Bruit 785.9 Active Assessment Hyperlipidemia E78.5 Active Problem Aortic stenosis 424.1 Active Assessment Diabetes mellitus type II, E11.9 Active controlled Problem Aortic stenosis I35.0 Active Problem Carotid stenosis, right I65.21 Active Problem Bilateral carotid artery stenosis I65.23 Active Problem S/P CABG (coronary artery bypass Z95.1 Active graft) Problem Diabetes mellitus type II, E11.9 Active controlled Assessment Arteriosclerotic cardiovascular I25.10 Active disease (ASCVD) Assessment S/P CABG (coronary artery bypass Z95.1 Active graft) Problem Arteriosclerotic cardiovascular I25.10 Active disease (ASCVD) Assessment Bilateral carotid artery stenosis I65.23 Active Problem Chronic kidney disease N18.9 Active Problem Essential (primary) hypertension I10 Active Problem Hyperlipidemia E78.5 Active Problem RBBB I45.10 Active Problem RBBB 426.4 Active Problem Hyperlipidemia 272.4 Active Problem Hypertension, Unspecified 401.9 Active Problem Chronic Kidney Disease 593.9 Active Problem Coronary Artery Disease 414.01 Active Problem Murmur 785.2 Active Problem Diabetes Mellitus, Type II, Not 250.00 Active Stated As Uncontrolled Problem S/P CABG V45.81 Active Medications Medication Code Code Instructions Start End Status Dosage System Date Fish Oil NDC 47690-75 1000 MG Orally 1 capsule 43-60 Once a day ASA 81 mg NDC 0 81MG Oral qd 1 tab Insulin ND 8222-074 31G X 5/16 not defined Syringe-Needle 591 U-100 [place] [address]-18 Orally qd as directed 87-60 [place] [address]-68 0.4 MG not defined 18-13 Sublingual Viagra [facility] [place] 2] 45356-72 100 MG Orally 1 tablet 20-30 prn Atenolol [facility] [place] 2] 53793-99 50 MG Orally 1/2tab 52-01 Once a day Novolin 70/30 [facility] [place] 2] 06023-57 (70-30) 100 not defined 37-11 UNIT/ML Subcutaneous Norvasc [facility] [place]NOTE 2] 42546-18 5 MG Orally Once Oct 18, 1/2 tab 30-41 a day 2011 Lisinopril [facility] [place]NOTE 2] 95270-09 20 MG Orally Oct 18, 2 tablets 68-01 Twice a day 2011 Ibuprofen [facility] [place]NOTE 2] 71676-20 200 MG Orally 1 tablet as 74-71 prn needed Lipitor [facility] [place]NOTE 2] 12293-40 40 MG Orally 1/2 tab 57-23 Once a day Methimazole [facility] [place]NOTE 2] 14368-69 10 MG Orally qd 1/2 tablet 10-01 Tylenol [facility] [place]NOTE 2] 09746-82 325 MG Orally 1 tablet as 96-60 prn needed Multivitamins [facility] [place]NOTE 2] 76598-49 Orally qd as directed 46-10 Procedures Procedure Coding System Code Date Office Visit, Est Pt., Level 3 CPT-4 83213 September 10, 2015 Vital Signs Date/Time: September 10, 2015 BMI 29.81 Index Weight 226 lbs Height 73 in Cardiac Monitoring Heart Rate 68 /min Oximetry 96 % Blood Pressure Diastolic 74 mm Hg Blood Pressure Systolic 146 mm Hg Results No Known Results Summary Purpose [employer] Submission
--- OUTSIDE RECORDS SUMMARY | 2016-10-31 05:12 | External Medical Summary | Referral Summary ---
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) Hyperlipemia(Confirmed) Active Hyperthyroidism(Confirmed) Active Obesity (disorder)(Confirmed) Active Diabetes type 2, controlled(Confirmed) Active Allergies, Adverse Reactions, Alerts Substance Reaction Severity Status penicillin Unknown Active Medications aspirin 0 Refill(s) Start Date: 11/13/13 Status: Orderedatenolol 50 mg oral tablet 0.5 tabs, Oral, Daily, # 30 tabs, 3 Refill(s), Pharmacy: [id number], 0.5 tabs Oral Daily Start Date: 08/21/13 Status: OrderedBD UF II SHORT /10 SYG See Instructions, INJECT TWICE DAILY, # 100 tabs, 2 Refill(s), eRx: [facility], INJECT TWICE DAILY Start [...] Instructions, # 300 Each, 3 Refill(s), Pharmacy: [id number], accu check smart test [...] BY MOUTH ONCE DAILY, # 45 tabs, 2 Refill( s), eRx: [facility], TAKE ONE-HALF TABLET BY MOUTH ONCE DAILY Start Date: 03/04/15 Status: Orderednitroglycerin 0 Refill(s) Start Date: 02/13/15 [...] Title: Office Visit Note Author: Morenita Boyd [employer] Date: 09/27/14 Assessment/Plan 1.Diabetes type 2, controlled 1. check blood sugars fasting and 2 hours after meals 3-7 days per week 2. continue same doses of insulin 3. rotate injection sites 4. monitor diet and exercise 5. monitor feet daily I discussed the patient with the preceptor. Ordered: Hemoglobin A1c Office Visit Level 3 Est 86963 2.prison current use of insulin Ordered: Office Visit Level 3 Est 85969 3.Benign essential hypertension Ordered: Office Visit Level 3 Est 91230 4.Hyperlipemia Ordered: Office Visit Level 3 Est 77441 5.Hyperthyroidism Ordered: Office Visit Level 3 Est 81135 6.Diabetic renal disease Ordered: Office Visit Level 3 Est 61842 Extracted from: Title: Ambulatory Patient Education Author: Morenita Boyd [employer] Date: 09/27 Family Medicine How to Avoid [...] untreated, can lead to tooth [place] your teeth twice a day, floss, and [...] Document Reviewed: 11/10/2011 ExitCare Patient Information 2015 [employer] [facility]. This information is not intended to replace advice given to you by your health care provider. Make sure you discuss any questions you have with your health care provider. No follow up information was provided.
--- OUTSIDE RECORDS SUMMARY | 2016-10-31 05:12 | External Medical Summary ---
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 04684-02 1000 MG Orally 1 capsule 43-60 Once a day Viagra [facility] 28837-34 100 MG Orally 1 tablet 20-30 prn Norvasc [facility] 90300-19 5 MG Orally Once Oct 18, 1/2 tab 30-41 a day 2011 Lipitor [facility] 97845-53 40 MG Orally 1/2 tab 57-23 Once a day Lisinopril [facility] 04155-61 20 MG Orally Oct 18, 2 tablets 68-01 Twice a day 2011 Tylenol [facility] 52057-85 325 MG Orally 1 tablet as 96-60 [place] [address]-16 10 MG Orally qd 1/2 tablet 10-01 Atenolol [facility] 90558-11 50 MG Orally 1/2tab 52-01 Once a [place] 70/30 [place] [address]-79 (70-30) 100 not defined 37-11 UNIT/[place] [address]-60 Orally qd as directed 46-10 ASA 81 mg NDC 0 81MG Oral qd 1 tab Nitroglycerin [facility] 75400-83 0.4 MG not defined 18-13 [place] [address]-50 Orally qd as directed 87-60 Ibuprofen [facility] 28785-21 200 MG Orally 1 tablet as 74-71 prn needed Insulin [facility] 8222-074 31G X 5/16 not defined Syringe-Needle 591 U-100 Procedures Procedure Coding System Code Date Office Visit, Est Pt., Level 4 CPT-4 77857 September 06, 2014 Vital Signs Date/Time: September 06, 2014 BMI 29.42 Index Weight 223 lbs Height 73 in Cardiac Monitoring Heart Rate 44 /min Oximetry 98 % Blood Pressure Diastolic 66 sit mm Hg Blood Pressure Systolic 136 mm Hg Results No Known Results Summary Purpose eClinicalWorks Submission
[2016-10-31] MEDS ORDERED: SALINE FLUSH 10ml SYRINGE IVF PRN (05:13)
--- NOTE | 2016-10-31 05:24 | Emergency Department Report ---
Cardiac General HPI - General Chief Complaint: Arrhythmia/Palpitations Stated Complaint: SOA Time Seen by Provider: 10/31/16 05:02 Source: patient Mode of arrival: ambulatory Limitations: no limitations - History of Present Illness HPI narrative: Patient awoke early this morning to go to the bathroom, and when he got up to go to the bathroom he noticed he was having some shortness of breath and rapid heartbeat. Patient has had this a few times this past week, and felt like he would probably go away, as it has before, but he became concerned when the symptoms seemed to linger. Initiated EMS, and EMS found the patient asymptomatic , but in atrial fibrillation with a mildly elevated ventricular response. Patient does not think he has ever been in A. fib before, but admits that he does not remember most of his diagnoses very well. Patient states that he had abnormal stress test done at Dr. Ivory's office earlier in the year, and he has been on a Holter monitor for the past month, but it still in his car and he has not returned to the cardiology office yet. Currently the patient states that he is completely asymptomatic, no shortness of breath, nausea, dizziness, headaches, chest discomfort of any type, abdominal discomfort of any type. - Related Data Home Medications Medication Instructions Recorded Confirmed Lantus (insulin glargine) 100 30 unit SQ QAM ml 09/03/16 unit/mL SQ amlodipine 5 mg tablet 5 mg PO BID #0 tab 09/03/16 aspirin 81 mg tablet,delayed 81 mg PO DAILY tab 09/03/16 release atenolol 25 mg tablet 12.5 mg PO BID #0 tab 09/03/16 atorvastatin 40 mg tablet 40 mg PO DAILY #0 tab 09/03/16 cholecalciferol (vitamin D3) 2,000 2,000 unit PO DAILY cap 09/03/16 unit capsule methimazole 10 mg tablet 5 mg PO QAM tab 09/03/16 pxvglwlm-bgs-gplsn acid 300 1 tab PO DAILY tab 09/03/16 mcg-lycopene 600 mcg-lutein 300 mcg tablet nitroglycerin 0.4 mg sublingual 0.4 mg SL Q5M PRN 09/03/16 tablet omega-3 fatty acids 1,000 mg 1,000 mg PO DAILY cap 09/03/16 capsule tadalafil 10 mg tablet 10 mg PO .DAILY PRN tab 09/03/16 vit A 1,000 unit-C 200 mg-E 60 1 tab PO DAILY tab 09/03/16 unit-lutein 2 mg and minerals tablet Previous Rx's Medication Instructions Recorded warfarin 5 mg tablet 5 mg PO DAILY #90 tab 10/26/16 Allergies Allergy/AdvReac Type Severity Reaction Status Date / Time Penicillins Allergy Unknown Verified 10/31/16 05:50 Review of Systems All systems: reviewed and negative except as stated PFSH Patient Stated Medical History Peripheral Neuropathy Yes: RT LEG POST BACK SURG Macular Degeneration Yes Cardiac Arrhythmia Yes Hypertension Yes Other Cardiology Yes: ASCVD, AORTIC STENOSIS Diabetes Mellitus Type 2 Yes Other GI Yes: HEMORRHOIDS Hx Renal Disease Yes: CHRONIC Clotting Problems Yes: WARFRIN Osteoarthritis Yes Cellulitis Yes Other Reproductive Yes: ED Clinic Medical History (Last Updated 10/19/16 @ 09:39 by Hanna Vargas RN) 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 Spinal fusion 1974. CABG x5 1995. Multiple polypectomies from sigmoid colon (tubullo-villous), Adenocarcinoma Gr 2 in polyp @ 30cm. Family History: Family History Father , at age 64 Diabetes mellitus Heart problem Mother , at age 83 CHF (congestive heart failure) Son Hyperlipidemia Daughter Depression - Social History Smoking status: Current some day smoker Physical Exam - Limitations Limitations: no limitations (memory impairment) - General General appearance: alert, in no apparent distress - Normal Exams: Head:: Normocephalic without trauma Eyes:: Pupils are PERRLA w/ EOMI, No scleral icterus, irritation, or foreign bodies noted ENMT:: No facial trauma, nasal exudates, pharyngeal erythema, or exudates are noted Neck:: Full range of motion, without adenopathy, JVD, bruits or thyromegaly Chest/Respirations:: Clear all delaney, with good airflow, and symmetry bilaterally Abdomen:: Bowel sounds positive, soft, non-tender, non-distended, no hepatosplenomegaly, masses or bruits noted Lymphatic:: No lymphadenopathy, or lymphedema noted Musculoskeletal:: No tenderness, or deformity noted, good range of motion, all extremities Integumentary:: No rashes, hives, or bruising noted, hair and nails, without abnormality Neurological:: Patient is alert, and oriented, cranial nerves, motor/sensory/ cerebellar, exams w/o gross deficits, to observation Psychiatric:: Patient exhibits, appropriate attention, emotion and affect - Chest Chest inspection: Present: normal inspection, symmetric chest wall rise. Absent : tenderness - Cardiovascular Cardiovascular exam: Present: tachycardia, irregular rhythm, systolic murmur ( through her 6 holosystolic murmur heard best in the aortic area) Course Vital Signs Temperature 99.1 F 10/31/16 05:01 Pulse Rate 97 10/31/16 05:01 Respiratory Rate 20 10/31/16 05:01 Blood Pressure 186/88 H 10/31/16 05:01 Pulse Oximetry 95 10/31/16 05:01 Temperature 99.1 F 10/31/16 05:01 Pulse Rate 97 10/31/16 05:01 Respiratory Rate 20 10/31/16 05:01 Blood Pressure 186/88 H 10/31/16 05:01 Pulse Oximetry 95 10/31/16 05:01 Cardiac General - MDM Narrative Medical decision making narrative: EKG shows atrial fibrillation with rapid ventricular response, pulse of 102-105. Patient's O2 saturation was mildly low at 92% on room air, but he is asymptomatic After initial history and physical, I discussed the patient with Dr. Jose Ivory who does not remember the patient by memory, and states he has no access to the clinic records at this time of night. Patient given 1 L normal saline IV fluid bolus, Cardizem 15 mg IV - CBC - white cell elevation CMP - normal Troponin - normal Chest x-ray shows mild atelectasis in the bases, questionable acuity Patient has responded with rate control after one dose of Cardizem 15 mg IV, however he remains in atrial fibrillation. Case is discussed with Dr. Dominic Pandya, we will admit the patient to observation medical telemetry, and for the details of the patient's history, medications, and further stabilization throughout the day. - Lab Data Result diagrams: 10/31/16 04:45 10/31/16 04:45 Lab Results 10/31/16 10/31/16 10/31/16 Range/Units 04:45 04:45 04:45 WBC 14.8 H (4.5-11.0) T/MM3 RBC 3.98 L (4.50-5.90) M/MM3 Hgb 12.0 L (13.5-17.5) GM/DL Hct 36.5 L (41-53) % MCV 91.7 (80-100) UM3 MCH 30.2 (26-34) UUG MCHC 32.9 (31-37) GM/DL RDW Std Deviation 49.1 (36.9-50.2) FL Plt Count 293 (130-400) T/MM3 MPV 10.5 (9.4-12.4) UM3 Immature Gran % (Auto) 0.3 (0.0-0.5) % Neut % (Auto) 77.4 H (33-66) % Lymph % (Auto) 15.2 L (23-45) % Crawford % (Auto) 5.7 (0-9.0) % Eos % (Auto) 1.1 (0-4) % Baso % (Auto) 0.3 (0-2) % Neut # 11.4 H (1.8-7.7) T/MM3 Lymph # 2.3 (1-4.8) T/MM3 Crawford # 0.9 H (0-0.8) T/MM3 Eos # 0.2 (0-0.5) T/MM3 Baso # 0.1 (0-0.2) T/MM3 Abs Immat Gran (auto) 0.04 H (0.00-0.03) T/MM3 INR 1.64 H (0.99-1.21) Turbidity < 20 (0-20) Sodium 144 (134-144) MEQ/L Potassium 4.9 (3.6-5) MEQ/L Chloride 108 H (98-107) MEQ/L Carbon Dioxide 23 (22-30) MEQ/L Anion Gap 13 (5-15) MEQ/L BUN 34.0 H (9-20) MG/DL Creatinine 1.4 (0.8-1.5) MG/DL GFR Calculation 48 BUN/Creatinine Ratio 24 (6-26) RATIO Glucose 184 H (75-110) MG/DL Calculated Osmolality 290 H (261-280) MOSM/KG Calcium 9.9 (8.4-10.2) MG/DL Total Bilirubin 1.30 (0.20-1.30) MG/DL Conjugated Bilirubin 0.00 (0.00-0.30) MG/DL Unconjugated Bilirubin 0.60 (0.00-11.10) MG/DL Icterus Index < 2 (0-7) AST 50 (17-59) U/L ALT 35 (21-72) U/L Alkaline Phosphatase 105 (38-126) U/L Troponin I 0.049 (0-0.12) ng/ml Total Protein 8.3 H (6.3-8.2) G/DL Albumin 4.4 (3.5-5.0) G/DL Globulin 3.9 H (2.4-3.6) G/DL Albumin/Globulin Ratio 1.1 (1.1-2.2) RATIO Specimen Hemolysis 118 H (0-25) Ur Collection Type Urine Color (YELLOW) Urine Clarity Urine pH (5.0-8.0) Ur Specific Nettie (1.015-1.025) Urine Protein (NEGATIVE) Urine Glucose (UA) (NEGATIVE) Urine Ketones (NEGATIVE) Urine Occult Blood (NEGATIVE) Urine Nitrate (NEGATIVE) Urine Bilirubin (NEGATIVE) Urine Urobilinogen (NORMAL) EU/DL Ur Leukocyte Esterase (NEGATIVE) 10/31/16 Range/Units 05:17 WBC (4.5-11.0) T/MM3 RBC (4.50-5.90) M/MM3 Hgb (13.5-17.5) GM/DL Hct (41-53) % MCV (80-100) UM3 MCH (26-34) UUG MCHC (31-37) GM/DL RDW Std Deviation (36.9-50.2) FL Plt Count (130-400) T/MM3 MPV (9.4-12.4) UM3 Immature Gran % (Auto) (0.0-0.5) % Neut % (Auto) (33-66) % Lymph % (Auto) (23-45) % Crawford % (Auto) (0-9.0) % Eos % (Auto) (0-4) % Baso % (Auto) (0-2) % Neut # (1.8-7.7) T/MM3 Lymph # (1-4.8) T/MM3 Crawford # (0-0.8) T/MM3 Eos # (0-0.5) T/MM3 Baso # (0-0.2) T/MM3 Abs Immat Gran (auto) (0.00-0.03) T/MM3 INR (0.99-1.21) Turbidity (0-20) Sodium (134-144) MEQ/L Potassium (3.6-5) MEQ/L Chloride (98-107) MEQ/L Carbon Dioxide (22-30) MEQ/L Anion Gap (5-15) MEQ/L BUN (9-20) MG/DL Creatinine (0.8-1.5) MG/DL GFR Calculation BUN/Creatinine Ratio (6-26) RATIO Glucose (75-110) MG/DL Calculated Osmolality (261-280) MOSM/KG Calcium (8.4-10.2) MG/DL Total Bilirubin (0.20-1.30) MG/DL Conjugated Bilirubin (0.00-0.30) MG/DL Unconjugated Bilirubin (0.00-11.10) MG/DL Icterus Index (0-7) AST (17-59) U/L ALT (21-72) U/L Alkaline Phosphatase (38-126) U/L Troponin I (0-0.12) ng/ml Total Protein (6.3-8.2) G/DL Albumin (3.5-5.0) G/DL Globulin (2.4-3.6) G/DL Albumin/Globulin Ratio (1.1-2.2) RATIO Specimen Hemolysis (0-25) Ur Collection Type Urine, clean catch Urine Color Yellow (YELLOW) Urine Clarity Clear Urine pH 5.5 (5.0-8.0) Ur Specific Nettie 1.025 (1.015-1.025) Urine Protein 2+ A (NEGATIVE) Urine Glucose (UA) Negative (NEGATIVE) Urine Ketones Negative (NEGATIVE) Urine Occult Blood Trace-intact (NEGATIVE) Urine Nitrate Negative (NEGATIVE) Urine Bilirubin Negative (NEGATIVE) Urine Urobilinogen 0.2 (NORMAL) EU/DL Ur Leukocyte Esterase Negative (NEGATIVE) Critical Care Time Total Critical Care Time: 40 Attestation: She required resuscitation with aggressive workup for atrial fibrillation with RVR, rate control, and continuous cardiac monitoring Disposition Clinical Impression: Atrial fibrillation with RVR Disposition: 02 OBS [facility] Condition: Improved Prescriptions: Continue atorvastatin 40 mg tablet 40 mg PO DAILY #0 tab amlodipine 5 mg tablet 5 mg PO BID #0 tab atenolol 25 mg tablet 12.5 mg PO BID #0 tab ktxcxkda-xjf-izwps acid 300 mcg-lycopene 600 mcg-lutein 300 mcg tablet 1 tab PO DAILY tab tadalafil 10 mg tablet 10 mg PO .DAILY PRN tab PRN Reason: sexual activity omega-3 fatty acids 1,000 mg capsule 1,000 mg PO DAILY cap vit A 1,000 unit-C 200 mg-E 60 unit-lutein 2 mg and minerals tablet 1 tab PO DAILY tab Lantus (insulin glargine) 100 unit/mL SQ 30 unit SQ QAM ml methimazole 10 mg tablet 5 mg PO QAM tab nitroglycerin 0.4 mg sublingual tablet 0.4 mg SL Q5M PRN warfarin 5 mg tablet 5 mg PO DAILY #90 tab aspirin 81 mg tablet,delayed release 81 mg PO DAILY tab cholecalciferol (vitamin D3) 2,000 unit capsule 2,000 unit PO DAILY cap - Seen By: physician
[2016-10-31] MEDS ORDERED: DiltiaZEM 25 MG/5 ML INJECTION IVP ONE ×2 (05:25→18:38)
[2016-10-31] MEDS ORDERED: NS 1,000 ML IV ONE (05:25)
--- NOTE | 2016-10-31 06:57 | History & Physical Report ---
<Dominic Pandya Catalina - Last Filed: 10/31/16 06:53> History of Present Illness Date: 10/31/16 Chief complaint: short of breath HPI: This is a 89y/o male who lives by himself. in [place]. Patient has had intermittent episodes of shortness of breath over the past at lest 1 week. the pateint has a history of atrial fib (we think) This patient is not a good historian and limited information is available at this time The patient has been followed by cardiology and a holter monitor was placed and results are pending Today the patient had increased shortness of breath worse than the previous days and EMS was activated and he was found to be in atrial fib with RVR. The patient is brought to the ED where a one time dose of IV cardiazem decreased rate into the 80's. The patient denies having any chest pain with his shortness of breath. It is not clear if orthopnea or PND. At this time the patient will be ruled out on tele with monitoring of rate. An effort to learn his history will be undertaken including an accurate list of his medicatoins. Note that the patient's INR is subtherapeutic aand he will be covered with therapeutic lovenox Review of Systems Review of systems: no headache, no fever, chills or sweats, no neck or jaw pain, no chest pain, just short of breath that comes and goes without provocation, no abodmen pain, no nausea or vomitng, no change in bowel movements, no focal weakenss. limted ROS but otherwise negative except for described above. 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 Spinal fusion 1974. CABG x5 1995. Multiple polypectomies from sigmoid colon (tubullo-villous), Adenocarcinoma Gr 2 in polyp @ 30cm. Family History: Family History Father , at age 64 Diabetes mellitus Heart problem Mother , at age 83 CHF (congestive heart failure) Son Hyperlipidemia Daughter Depression - Social History Smoking status: Current some day smoker Medications Home Medications Medication Instructions Recorded Confirmed Type Lantus (insulin glargine) 100 30 unit SQ QAM ml 09/03/16 History unit/mL SQ amlodipine 5 mg tablet 5 mg PO BID #0 tab 09/03/16 History aspirin 81 mg tablet,delayed 81 mg PO DAILY tab 09/03/16 History release atenolol 25 mg tablet 12.5 mg PO BID #0 tab 09/03/16 History atorvastatin 40 mg tablet 40 mg PO DAILY #0 tab 09/03/16 History cholecalciferol (vitamin D3) 2,000 2,000 unit PO DAILY cap 09/03/16 History unit capsule methimazole 10 mg tablet 5 mg PO QAM tab 09/03/16 History sykskowk-nfp-oozaw acid 300 1 tab PO DAILY tab 09/03/16 History mcg-lycopene 600 mcg-lutein 300 mcg tablet nitroglycerin 0.4 mg sublingual 0.4 mg SL Q5M PRN 09/03/16 History tablet omega-3 fatty acids 1,000 mg 1,000 mg PO DAILY cap 09/03/16 History capsule tadalafil 10 mg tablet 10 mg PO .DAILY PRN tab 09/03/16 History vit A 1,000 unit-C 200 mg-E 60 1 tab PO DAILY tab 09/03/16 History unit-lutein 2 mg and minerals tablet Allergies Allergy/AdvReac Type Severity Reaction Status Date / Time Penicillins Allergy Unknown Verified 10/31/16 05:50 Exam Vital Signs: Temperature 99.1 F 10/31/16 05:01 Pulse Rate 97 10/31/16 05:01 Respiratory Rate 20 10/31/16 05:01 Blood Pressure 186/88 H 10/31/16 05:01 Pulse Oximetry 95 10/31/16 05:01 Telemetry Rhythm: A-fib Comments: well developed well nourished male in minimal distress slight wandering in his responses to questions but knows his name , year, and where he is - Constitutional Present: mild distress, well nourished, well developed, average body habitus, cooperative - Routine HEENT Exam Head: Present: normocephalic, atraumatic Eye: Present: EOMI, conjunctivae pink ENT: Present: mucous membranes moist - Routine Neck Exam Present: supple, full ROM - Routine Respiratory Exam Present: CTA bilaterally - Routine Cardiovascular Exam Present: no murmur, irregular rhythm - Routine Abdominal Exam Present: soft, non distended - Routine Extremities Exam Present: no edema, full ROM - Routine Back/Spine/Pelvis Exam Back/Spine: Present: full ROM - Routine Skin Exam Present: intact - Routine Neurological Exam Present: oriented X3. Absent: motor deficit - Routine Psychiatric Exam Present: normal thought process, cooperative. Absent: normal affect, good insight Results - Labs CBC & Chem 7: 10/31/16 04:45 10/31/16 04:45 - ECG Data Tracing #1 atrial fib rvr - Imaging and Cardiology Chest x-ray Additional comments: sternotomy, cardiomegaly, no obvious falure Assessment and Plan (1) Atrial fibrillation with RVR Current visit: Yes Status: Acute 10/31/16 07:06 patient had rvr on presentation. these episodes of dyspnea are most likely a refelction of episodes of tachyarrhtymia. currently meds are not known. one dose of cardiazem in ed slowed rate down well. will get records to understand mes. metoprolol prn for now. on b césar, obviously monitor on tele. address changed in rate control as indicated. consdier echo if not done recently and/or cardiology cx. get records from recent holter done. (2) HTN (hypertension) Current visit: No Status: Chronic 10/31/16 07:08 get records and determine meds It is probable he is on b césar. adjust meds asindicated (3) Diabetes mellitus Current visit: No Status: Chronic 10/31/16 07:09 correctional plan (4) Coronary artery disease Current visit: Yes Status: Acute 10/31/16 07:10 patient is s/p CABG. troponin is .05 on presenation. it is not unreasonable to expect a demand ischemia with accelerated rate. rule out on tele. Get information regarding meds. Possible he is on b césar, isnow on therapeutic lovenox, DVT Prophylaxis: SCD's, Lovenox Resuscitation Status: Full Code Hospital Course Summary Disclaimer: The visit summary below is not to be considered part of the above Progress Note. <Maria G Clifford - Last Filed: 10/31/16 13:54> History of Present Illness Date: 10/31/16 [facility] Patient Stated Medical History Family History: Family History Father , at age 64 Diabetes mellitus Heart problem Mother , at age 83 CHF (congestive heart failure) Son Hyperlipidemia Daughter Depression Exam Vital Signs: Temperature 97.7 F 10/31/16 12:53 Pulse Rate 88 10/31/16 12:53 Respiratory Rate 22 10/31/16 12:53 Blood Pressure 128/65 10/31/16 12:53 Pulse Oximetry 95 10/31/16 12:53 Oxygen Delivery Method Nasal Cannula Oxygen Flow Rate 2 Height/Weight/BMI: Height 1.77 m Weight 102.1 kg Body Mass Index 32.5 Results - Labs CBC & Chem 7: 10/31/16 04:45 10/31/16 04:45 Assessment and Plan (1) Atrial fibrillation with RVR Current visit: Yes Status: Acute (2) HTN (hypertension) Current visit: No Status: Chronic (3) Diabetes mellitus Problem details: A1c 8.4 on 07/10/16 Current visit: No Status: Chronic (4) Coronary artery disease Current visit: Yes Status: Acute Assessment and Plan: Dr. Pandya's note reviewed. Mr. Solares interviewed and examined. Supplemental history obtained from old records, patient's son, office provider. CC: Dyspnea HPI: Mr. Solares is an 89-year-old male who lives independently. He describes awakening at 4 AM short of breath when he got up to the bathroom. In retrospect he recalls having a similar milder episode the night before which lasted briefly and resolve spontaneously. Earlier this morning the episode persisted prompting him to call EMS at about 4:30. When EMS arrived he was found to be in atrial fibrillation with RVR and he was transported to the emergency room for management. The patient denies palpitations, chest pain, cough, fever, wheezing , recent sputum production, exertional dyspnea, or PND. It should be noted that the patient has difficulty providing history and is confused about medications and what changes have been made when. The patient reports he was recently started on warfarin but does not recognize the name atrial fibrillation. He had a stress test with Dr. Ivory several weeks ago after which Dr. Vargas resumed atenolol at 12.[address] Ivory had previously discontinued for bradycardia. Patient reports that a Holter monitor has been done recently but that the monitor is still sitting in his car waiting to be returned. His son reports that the patient has had increased confusion for a number of weeks causing concern for family members but the patient does not acknowledge any problems. Patient was unable to clearly identify what medications he takes or dosing nor could he tell me what medications for. PH/SH/FH: agree with that recorded above with additional history of coronary artery disease, bifascicular block/RBBB, chronic kidney disease, aortic stenosis with valve area of 0.87 cm, recent bradycardia with heart rate at 42 leading to discontinuation of beta césar, presumed hyperthyroidism treated with methimazole, and history of cataract extractions in addition to previous the described surgeries. 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 He denies alcohol or loss drug use. His son Román Solares ([phone]) is DPOA and the patient is a full code. ROS: 10 point review is as described by Dr. Pandya noting that it's very difficult to elicit history from the patient. Patient denies any difficulty with his memory other than trouble remembering people's names now. EXAM: General-NAD, talkative, forgetful; 93% on 2 L, 152/80 HEENT-PERRL, EOMI without nystagmus, conjunctiva clear, sclera anicteric, conjugate gaze, facial structures symmetric, oropharynx clear, neck supple and without adenopathy Lungs-respirations nonlabored, good airflow, faint crackles at the bases bilaterally Cardiac-irregularly irregular rhythm, S1-S2, harsh 3/6 systolic murmur heard throughout the precordium Abd-soft, nontender, without palpable mass, bowel sounds present Ext-+1 edema RLE, trace edema LLE Skin-without generalized rash Neuro-cranial nerves 3-12 intact, motor tone normal, proximal/distal power upper and lower extremities within normal limits, no drift, sensation intact to light touch 4 extremities, no tremor present Psych-confused, cooperative with exam DATA: Chest x-ray reviewed by myself- borderline cardiomegaly, increased vascular markings, prior sternotomy EKG also reviewed by myself demonstrates atrial fibrillation with rate 102, RBBB with secondary ST changes Troponin 0.049-0.058; INR 1.64 Platelet count 298, electrolytes unremarkable, creatinine 1.4, liver enzymes within normal limits, TSH 2.58 UA with +2 protein A/P: A. 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 Warfarin is being continued in conjunction with amlodipine for blood pressure control, Lantus, methimazole, and atenolol. Heart rate has remained stable since single dose of diltiazem was given IV in the emergency room. Telemetry will be continued. Dr. 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 Therapeutic Lovenox has been initiated as INR is subtherapeutic at present. As best history can be pieced together it sounds as though the patient has recently converted to atrial fibrillation at which time warfarin was initiated and atenolol was resumed however this is speculation of present. Results of recent stress test are unknown although the patient indicates he received a report about "something". Free T4 will be checked and blood sugars monitored in routine manner with corrective insulin available as needed. Diabetic diet with salt restriction has been ordered. D-dimer is being evaluated and proBNP checked for baseline. My bigger concern is of the patient's confusion and his ability to live safely at home and manage medications. His son indicated similar concerns. CT of the head will be obtained and I anticipate Kristal testing early next week. Greater than 90 minutes spent on patient management and trying to obtain supplemental history from multiple sources including the patient's son, office records, Cady Armstrong who is in the office today, and old hospital records. Hospital Course Summary Disclaimer: The visit summary below is not to be considered part of the above Progress Note.
[2016-10-31] MEDS ORDERED: DEXTROSE 50% SYRINGE 50ml (1 AMP) IVP PRN (07:11)
[2016-10-31] MEDS ORDERED: INSULIN REGULAR, HUMAN 100 UNIT/ML INJECTION SQ PRN (07:11)
[2016-10-31 07:16] VITALS: BMI 32.5
[2016-10-31] MEDS ORDERED: NS 1,000 ML IV SCH (07:20)
[2016-10-31] MEDS ORDERED: METOPROLOL 5mg/5ml INJECTION IVP PRN (07:20)
[2016-10-31] MEDS: ENOXAPARIN 100 MG/ML INJECTION SQ SCH ×2 (10:16→19:09)
[2016-10-31] MEDS ORDERED: WARFARIN 5 MG TABLET PO ONE (13:48)
[2016-10-31] MEDS: INSULIN ASPART 100unit/ml INJECTION SQ PRN (15:04)
[2016-10-31] MEDS ORDERED: FUROSEMIDE 20 MG/2 ML INJECTION IVP ONE (16:02)
[2016-10-31] MEDS: SALINE FLUSH 10ml SYRINGE IV PRN ×2 (16:17→18:48)
--- NOTE | 2016-10-31 16:19 | XRay Report ---
INDICATION: dyspnea with afib PROCEDURE: CHEST 2-VIEWS UPRIGHT (PA & LAT) Encounter: Initial COMPARISON: None FINDINGS: Hazy airspace disease in the lower lobes posteriorly on the lateral view, greater on the right. Upper lung delaney are grossly clear. No pneumothorax or definite effusion. Prior sternotomy. Cardiac silhouette is mildly enlarged. Mediastinal contours are normal. Pulmonary vascularity appears somewhat prominent. Impression: Mild pulmonary edema with lower lobe atelectasis versus pneumonia. .
[2016-10-31] MEDS: ATENOLOL 25 MG TABLET PO SCH (20:22)
[2016-10-31] MEDS: AMLODIPINE 5 MG TABLET PO SCH (20:22)
[2016-11-01] MEDS: ENOXAPARIN 100 MG/ML INJECTION SQ SCH ×2 (08:15→21:20)
[2016-11-01] MEDS: AMLODIPINE 5 MG TABLET PO SCH ×2 (08:15→21:20)
[2016-11-01] MEDS: METHIMAZOLE 10 MG TABLET PO SCH (08:15)
[2016-11-01] MEDS: ATENOLOL 25 MG TABLET PO SCH (08:16)
[2016-11-01] MEDS: INSULIN GLARGINE 100unit/ml INJECTION SQ SCH (08:55)
[2016-11-01] MEDS ORDERED: ATENOLOL 25 MG TABLET PO SCH (09:00)
--- NOTE | 2016-11-01 09:18 | CT Scan Report ---
Indication: confusion, anticoagulated, A. fib PROCEDURE: CT head/brain wo con: Encounter: Initial Comparison: None Technique: Axial CT images through the head were performed without contrast. Iterative Reconstruction dose reducing technique was utilized. FINDINGS: Mild generalized atrophy. The ventricles are of normal size, shape, and contour for the patient's age. There are scattered areas of low attenuation in the white matter which most likely represent changes from chronic microvascular ischemia. The brainstem, cerebellum, and cerebral hemispheres otherwise have a normal morphology and CT attenuation. There is no evidence of midline displacement. No hemorrhage, signs of acute territorial stroke, mass effect, mass lesions, or edema is evident. The visualized portions of the skull base, midface, and calvarium demonstrate no abnormality. The paranasal sinuses are well aerated and free of significant disease. The tympanic and mastoid cavities appear normal. IMPRESSION: No acute intracranial abnormality or hemorrhage. There is a preliminary report by [employer] radiologic. .
[2016-11-01] MEDS: INSULIN ASPART 100unit/ml INJECTION SQ PRN ×2 (10:48→14:40)
--- NOTE | 2016-11-01 13:39 | Progress Note ---
<Latosha Morin - Last Filed: 11/01/16 14:12> Subjective: Patient seen today sitting up in his chair in his room. He was sleeping when I went in to see him and it took quite a bit to get home to wake up. Nurse reports he has been sleeping all morning. She states he ate a good breakfast. She feels like he is tracking well. Does not see significant confusion. She believes hearing loss may play a role in why he comes across as being confused at times. He does not have any complaints at this time. He frequently asks "Is this a dream? Is this happening? Where did you come from?" He is able to accurately tell me about his family members whom I know. He denies any chest pain, palpitations, coughing or shortness of breath. Objective Vital signs: Temperature 97.7 F 11/01/16 08:00 Pulse Rate 88 11/01/16 12:00 Respiratory Rate 24 11/01/16 08:00 Blood Pressure 173/81 H 11/01/16 08:00 Pulse Oximetry 95 11/01/16 08:00 Height/Weight/BMI: Weight 100.2 kg - Constitutional Present: no acute distress, well nourished, well developed - Routine HEENT Exam Head: Present: normocephalic, atraumatic ENT: Present: mucous membranes moist - Routine Respiratory Exam Present: crackles (bases -bilaterally). Absent: wheezes Comments: Audible upper respiratory crackles present without use of stethoscope - Routine Cardiovascular Exam Present: murmur (gradeIII), irregular rhythm - Routine Abdominal Exam Present: soft, normoactive bowel sounds, non distended. Absent: tenderness - Routine Extremities Exam Present: edema (1+ right, trace left.), normal capillary refill - Routine Back/Spine/Pelvis Exam Back/Spine: Present: full ROM - Routine Skin Exam Present: dry, warm - Routine Neurological Exam Present: alert, moving all extremities, normal speech. Absent: hearing grossly intact (hard of hearing) - Routine Lymphatic Exam Lymphatic: Absent: adenopathy - Routine Psychiatric Exam Present: normal affect, cooperative Results - Labs CBC & Chem 7: 11/01/16 04:09 11/01/16 04:09 - Imaging and Cardiology CT scan - head Additional comments: FINDINGS: Mild generalized atrophy. The ventricles are of normal size, shape, and contour for the patient's age. There are scattered areas of low attenuation in the white matter which most likely represent changes from chronic microvascular ischemia. The brainstem, cerebellum, and cerebral hemispheres otherwise have a normal morphology and CT attenuation. There is no evidence of midline displacement. No hemorrhage, signs of acute territorial stroke, mass effect, mass lesions, or edema is evident. The visualized portions of the skull base, midface, and calvarium demonstrate no abnormality. The paranasal sinuses are well aerated and free of significant disease. The tympanic and mastoid cavities appear normal. IMPRESSION: No acute intracranial abnormality or hemorrhage. Chest x-ray Additional comments: Chest x-ray 10/31/16 FINDINGS: Hazy airspace disease in the lower lobes posteriorly on the lateral view, greater on the right. Upper lung delaney are grossly clear. No pneumothorax or definite effusion. Prior sternotomy. Cardiac silhouette is mildly enlarged. Mediastinal contours are normal. Pulmonary vascularity appears somewhat prominent. Impression: Mild pulmonary edema with lower lobe atelectasis versus pneumonia. Assessment and Plan (1) HTN (hypertension) Current visit: No Status: Chronic (2) Diabetes mellitus Problem details: A1c 8.4 on 07/10/16 Current visit: No Status: Chronic (3) Atrial fibrillation with RVR Current visit: Yes Status: Acute (4) Coronary artery disease Current visit: Yes Status: Acute Assessment and Plan: Assessment A. 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 Await cardiology recommendations. Telemetry reviewed. Today patient has been in controlled A. fib with rates of 60 to 70s. Last evening he had 20 mg IV Cardizem due to rates up to 140-150. He has been controlled since then. Continue Lovenox. His warfarin is currently on hold pending possible pacemaker implantation by Dr. Ivory. Consult OT for Kristal scoring Resume home atorvastatin 40 mg daily Sepsis Assessment - Evaluation Sepsis screening result: No Definite Risk Hospital Course Summary Disclaimer: The visit summary below is not to be considered part of the above Progress Note. Hospital Course: Impression A. 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 Warfarin is being continued in conjunction with amlodipine for blood pressure control, Lantus, methimazole, and atenolol. Heart rate has remained stable since single dose of diltiazem was given IV in the emergency room. Telemetry will be continued. Dr. 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 Therapeutic Lovenox has been initiated as INR is subtherapeutic at present. As best history can be pieced together it sounds as though the patient has recently converted to atrial fibrillation at which time warfarin was initiated and atenolol was resumed however this is speculation of present. Results of recent stress test are unknown although the patient indicates he received a report about "something". Free T4 will be checked and blood sugars monitored in routine manner with corrective insulin available as needed. Diabetic diet with salt restriction has been ordered. D-dimer is being evaluated and proBNP checked for baseline. My bigger concern is of the patient's confusion and his ability to live safely at home and manage medications. His son indicated similar concerns. CT of the head will be obtained and I anticipate Kristal testing early next week. Greater than 90 minutes spent on patient management and trying to obtain supplemental history from multiple sources including the patient's son, office records, Cady Armstrong who is in the office today, and old hospital records. 11/01/16 Given the patient's worsening audible crackles and previous abnormal chest x-ray , will repeat chest x-ray today. Await cardiology recommendations. Telemetry reviewed. Today patient has been in controlled A. fib with rates of 60 to 70s. Last evening he had 20 mg IV Cardizem due to rates up to 140-150. He has been controlled since then. Continue Lovenox. His warfarin is currently on hold pending possible pacemaker implantation by Dr. Ivory. Consult OT for Kristal scoring Resume home atorvastatin 40 mg daily <Maria G Clifford - Last Filed: 11/01/16 17:10> Objective Vital signs: Temperature 97.7 F 11/01/16 16:08 Pulse Rate 80 11/01/16 16:08 Respiratory Rate 20 11/01/16 16:08 Blood Pressure 148/77 H 11/01/16 16:08 Pulse Oximetry 98 11/01/16 16:08 Oxygen Delivery Method Nasal Cannula Oxygen Flow Rate 3 Height/Weight/BMI: Weight 100.2 kg Results - Labs CBC & Chem 7: 11/01/16 04:09 11/01/16 04:09 Assessment and Plan (1) Atrial fibrillation with RVR Current visit: Yes Status: Acute (2) Coronary artery disease Current visit: Yes Status: Acute (3) Tachy-karol syndrome Current visit: Yes Status: Acute Assessment and Plan: I have independently evaluated and examined this patient. I reviewed the chart, the patient's history, and the FUEL PILOT ENGINEER/PA's documented findings as above. We discussed and formulated the assessment and plan as above with additions as below: Mr. Solares was seen with his daughter present. He seemed more confused today than when I saw him yesterday but denied dyspnea, chest pain, or palpitations. He does not recall having rapid heartbeats yesterday and specifically denied becoming short of breath yesterday evening. The patient is awake but confused although he recalls that I am somehow distantly related to his mother but today he thinks my is the linkage. Respirations are nonlabored and breath sounds are diminished at the right base where there are scattered crackles. Cardiac rhythm remains slightly irregular with 2-3/6 systolic murmur heard throughout the precordium. Trace edema is present Telemetry strips reviewed-persistent sinus rhythm, have asked that stripped from yesterday evening when heart rate accelerated to 140-150 be placed in the chart. Dr. Ivory to see for possible pacemaker versus medication management of atrial fibrillation. Continue therapeutic Lovenox pending decision making. IV fluids discontinued yesterday, will need to be cautious with diuresis due to history of aortic stenosis. Check A1c with electrolytes/creatinine in a.m. Chest x-ray reviewed by myself, supplemental history provided by nursing and the patient's daughter, laboratory data reviewed; high-risk medications in use. In addition to above diagnoses would add: #1 tachybradycardia syndrome #2 normocytic anemia Hospital Course Summary Disclaimer: The visit summary below is not to be considered part of the above Progress Note.
[2016-11-01] MEDS ORDERED: ATORVASTATIN 40 MG TABLET PO SCH (21:00)
--- NOTE | 2016-11-01 22:47 | XRay Report ---
EXAM: XR chest 2V HISTORY: worsening crackles on pulmonary exam COMPARISON: Prior examination dated 10/31/2016 FINDINGS: The heart is again noted to be mildly enlarged. Changes of prior coronary artery bypass grafting are again noted. The trachea is midline and there is no evidence mediastinal widening. There is been interval resolution of the pulmonary vascular congestion and mild interstitial edema. There are again noted streaky/hazy opacities at both lung bases consistent with atelectasis/infiltrate. There has been interval development of a small left pleural effusion. The right costophrenic angle is clear. The bony thorax is stable with median sternotomy wires in place. IMPRESSION: 1. Persistent bibasilar atelectasis/infiltrate. 2. Small left pleural effusion has developed in the interval. 3. Resolving congestive changes. .
--- NOTE | 2016-11-01 23:01 | Cardiology Consult Note ---
History of Present Illness Consult date: 11/01/16 Consult reason: atrial fibrillation, congestive heart failure Chief complaint: dyspnea History of present illness: denies CP or dyspnea at this time. comfortable on RA. denies any plapitations or dizziness. 89-year-old male lives independently he is a patient of Drs. Rodolfo Vargas and Jonnie Ivory. And he describes awakening at 4 AM and able to breathe when he got up to use the bathroom. He has had milder and similar episode the night before. Said prompt him to call EMS around 4:30 AM found to be in A. fib with RVR at transported to emergency department received IV diltiazem for a heart rate in 150s said mild pulmonary edema and initial troponin was normal. Patient is reportedly a poor historian and he seems to be able to provide more in detail to me end. A bit clearer when I evaluated him at 11/01/2016 around 9: 30 PM. Patient denies chest pain or pressure or palpitations. He is feeling better since admission. Has been long-established with Dr. Jonnie Ivory since his CABG 26 years ago. Had a Holter monitor with Dr. Karen Ivory in August when his atenolol was discontinued only to be restarted by his family practitioner Dr. Rodolfo Vargas at 12.5 mg daily. Apparently aortic stenosis with a valve area of 0.9 cm per records obtained by Dr. Clifford from Dr. Vargas office correspondence from from his home care physical therapist. Patient is not sure what was his last heart catheterization. Receive any stents or stress test in the past few years, discussing this matter he is appearing to be confused. Since admission his warfarin been on hold for possible pacemaker insertion. A chest x-ray showed mild pulmonary edema Serial troponins negative Patient is treated with by mouth atenolol in addition to usual cardiac meds Review of Systems Review of systems: no headache, no fever, chills or sweats, no neck or jaw pain, no chest pain, just short of breath that comes and goes without provocation, no abodmen pain, no nausea or vomitng, no change in bowel movements, no focal weakenss. limted ROS but otherwise negative except for described above. No hematochezia or melena no TIA or strokelike symptoms of fever chills or night sweats. Rest of compensative system is negative except as in history of present illness - Cardiovascular Cardiovascular: Present: orthopnea, heart murmur. 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 Spinal fusion 1974. CABG x5 1995. Multiple polypectomies from sigmoid colon (tubullo-villous), Adenocarcinoma Gr 2 in polyp @ 30cm. Family History: Family History Father , at age 64 Diabetes mellitus Heart problem Mother , at age 83 CHF (congestive heart failure) Son Hyperlipidemia Daughter Depression - Social History Smoking status: Current some day smoker Household members: spouse Medications Home Medications Medication Instructions Recorded Confirmed Type Lantus (insulin glargine) 100 30 unit SQ QAM ml 09/03/16 10/31/16 History unit/mL SQ amlodipine 5 mg tablet 5 mg PO BID #0 tab 09/03/16 10/31/16 History aspirin 81 mg tablet,delayed 81 mg PO DAILY tab 09/03/16 10/31/16 History release atorvastatin 40 mg tablet 40 mg PO DAILY #0 tab 09/03/16 10/31/16 History cholecalciferol (vitamin D3) 2,000 2,000 unit PO DAILY cap 09/03/16 History unit capsule methimazole 10 mg tablet 5 mg PO QAM tab 09/03/16 10/31/16 History gmtyaqjy-xtc-fkhue acid 300 1 tab PO DAILY tab 09/03/16 History mcg-lycopene 600 mcg-lutein 300 mcg tablet nitroglycerin 0.4 mg sublingual 0.4 mg SL Q5M PRN 09/03/16 History tablet omega-3 fatty acids 1,000 mg 1,000 mg PO DAILY cap 09/03/16 10/31/16 History capsule tadalafil 10 mg tablet 10 mg PO .DAILY PRN tab 09/03/16 History vit A 1,000 unit-C 200 mg-E 60 1 tab PO DAILY tab 09/03/16 History unit-lutein 2 mg and minerals tablet Allergies Allergy/AdvReac Type Severity Reaction Status Date / Time Penicillins Allergy Unknown Verified 10/31/16 05:50 Exam Vital signs: Temperature 97.7 F 11/01/16 16:08 Pulse Rate 80 11/01/16 16:08 Respiratory Rate 20 11/01/16 16:08 Blood Pressure 148/77 H 11/01/16 16:08 Pulse Oximetry 94 11/01/16 18:39 Oxygen Delivery Method Room Air Oxygen Flow Rate 3 - Constitutional no acute distress - Routine HEENT Exam Head: Present: normocephalic, atraumatic. Absent: laceration, hematoma Eye: Present: EOMI, PERRL ENT: Present: mucous membranes moist Nose: moist mucous membranes - Routine Neck Exam Present: JVD (mild), normal carotid upstroke. Absent: carotid bruit, lymphadenopathy, thyromegaly - Routine Respiratory Exam Present: decreased breath sounds (B abses dullness to percussion ), wheezes ( occ.) - Routine Cardiovascular Exam Present: murmur (3/6 musical m ,late peaking w reduced A2), irregularly irregular - Routine Abdominal Exam Present: soft, normoactive bowel sounds, non distended, non tender - Routine Extremities Exam Present: edema (2+ B LE ). Absent: cyanosis, clubbing - Routine Skin Exam Absent: cyanosis, erythema - Routine Neurological Exam Present: alert, oriented X3, CN II-XII intact, normal speech. Absent: motor deficit - Routine Psychiatric Exam Present: normal affect, cooperative, good insight Results 11/02/16 04:01 11/02/16 04:01 CBC 11/01/16 Range/Units 04:09 WBC 11.0 (4.5-11.0) T/MM3 RBC 3.50 L (4.50-5.90) M/MM3 Hgb 10.3 L D (13.5-17.5) GM/DL Hct 32.5 L (41-53) % Plt Count 245 (130-400) T/MM3 Neut # 8.6 H (1.8-7.7) T/MM3 Lymph # 1.5 (1-4.8) T/MM3 [place] # 0.8 (0-0.8) T/MM3 Eos # 0.1 (0-0.5) T/MM3 Baso # 0.0 (0-0.2) T/MM3 Comprehensive Metabolic Panel 11/01/16 Range/Units 04:09 Sodium 144 (134-144) MEQ/L Potassium 4.1 (3.6-5) MEQ/L Chloride 108 H (98-107) MEQ/L Carbon Dioxide 26 (22-30) MEQ/L BUN 31.0 H (9-20) MG/DL Creatinine 1.4 (0.8-1.5) MG/DL Glucose 187 H (75-110) MG/DL Calcium 9.3 (8.4-10.2) MG/DL Albumin 3.6 (3.5-5.0) G/DL Intake and Output 11/01/16 11/01/16 11/01/16 06:59 14:59 22:59 Intake Total 300 / 300 810 / 810 360 / 360 Balance 300 / 300 810 / 810 360 / 360 Intake: Oral 300 / 300 810 / 810 360 / 360 Other: Urine Color Yellow # Voids 1 1 Weight 100.2 kg Patient Weight 11/02/16 06:59 Weight 100.2 kg - EKG Interpretation EKG shows: atrial fibrillation (nonspecific ST and T changes no acute ischemic changes RBBB left axis deviation Q waves only in V1 no diagnostic Q waves) Assessment and Plan (1) Aortic stenosis, severe Status: Acute (2) Atrial fibrillation with RVR Status: Acute (3) Congestive heart failure (CHF) Status: Acute (4) Coronary artery disease Problem details: Remote CABG Status: Acute (5) Tachy-karol syndrome Status: Acute (6) Diabetes mellitus Problem details: A1c 8.4 on 07/10/16 Status: Chronic (7) HTN (hypertension) Status: Chronic (8) Hyperlipidemia Status: Chronic (9) Hyperthyroidism Status: Acute Hospital Course Summary Disclaimer: The visit summary below is not to be considered part of the above Progress Note. Hospital Course: Impression A. 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 will contact his home care physical therapist in the am to discuss. may be best served by transfer to [facility]. he appears stable at this time. may need gentle diuresis,carefully. change to carvedilol no NANDO yet , given severe ,CKD anticipated procedures, and see how his BP is going to behave. 11/01/16 23:04 Sepsis Assessment - Evaluation Sepsis screening result: No Definite Risk
[2016-11-01] MEDS ORDERED: ENOXAPARIN 100 MG/ML INJECTION SQ SCH (23:15)
[2016-11-02] MEDS ORDERED: CARVEDILOL 3.125 MG TABLET PO SCH (08:00)
[2016-11-02] MEDS: ENOXAPARIN 100 MG/ML INJECTION SQ SCH (08:53)
[2016-11-02] MEDS: AMLODIPINE 5 MG TABLET PO SCH (09:48)
[2016-11-02] MEDS: METHIMAZOLE 10 MG TABLET PO SCH (09:48)
[2016-11-02] MEDS: INSULIN GLARGINE 100unit/ml INJECTION SQ SCH (10:03)
--- NOTE | 2016-11-02 10:58 | Discharge Instructions ---
Discharge Plan - Med Rec/Dispo Referrals/Follow Up: Rodolfo Vargas MD [Family Provider] - (After discharge from [place]) Jonnie Ivory MD [Physician] - (As instructed by Dr. Ivory when released from [place]) Anoop Instructions: A-fib (Atrial Fibrillation) (GEN) Prescriptions: New Metoprolol IV [Lopressor] 5 mg IVP Q5M PRN vial PRN Reason: continued afib Carvedilol [Coreg] 3.125 mg PO BIDWM tablet Enoxaparin Sodium [Lovenox] 100 mg SQ Q12H syringe Continue atorvastatin 40 mg tablet 40 mg PO DAILY #0 tab amlodipine 5 mg tablet 5 mg PO BID #0 tab ujjbycpe-rtl-ujfni acid 300 mcg-lycopene 600 mcg-lutein 300 mcg tablet 1 tab PO DAILY tab tadalafil 10 mg tablet 10 mg PO .DAILY PRN tab PRN Reason: sexual activity omega-3 fatty acids 1,000 mg capsule 1,000 mg PO DAILY cap vit A 1,000 unit-C 200 mg-E 60 unit-lutein 2 mg and minerals tablet 1 tab PO DAILY tab Lantus (insulin glargine) 100 unit/mL SQ 30 unit SQ QAM ml methimazole 10 mg tablet 5 mg PO QAM tab nitroglycerin 0.4 mg sublingual tablet 0.4 mg SL Q5M PRN aspirin 81 mg tablet,delayed release 81 mg PO DAILY tab cholecalciferol (vitamin D3) 2,000 unit capsule 2,000 unit PO DAILY cap Discontinued atenolol 25 mg tablet 12.5 mg PO BID #0 tab warfarin 5 mg tablet 5 mg PO DAILY #90 tab Discharge Instructions/Outpatient Orders: Final Provider Discharge Instructions Location: Determined By Patient - Disposition 02 To [facility] Acute Care
--- NOTE | 2016-11-02 11:07 | Discharge Summary ---
Discharge Information Date of admission: 10/31/16 18:57 Anticipated date of discharge: 11/02/16 Attending Physician: Maria G Clifford MD Primary care physician: Rodolfo Vargas MD Consults: Dr. Jose Ivory - Discharge Diagnosis Discharge Diagnosis: Atrial fibrillation with rapid ventricular response Tachybradycardia syndrome CHF with mild pulmonary edema Altered mental status-probable dementia Aortic stenosis, severe CAD Diabetes mellitus with nephropathy CKD, stage III - Laboratory Labs: On admission (10/31/16) white count was 14.8, hemoglobin 12.0, platelet count 293K; INR 1.64 on admission. Admission chemistries notable for creatinine 1.4, BUN 34, GFR 48, normal liver enzymes, proBNP 7390, and troponins of 0.049-0.058- 0.071 A1c 7.3 on 11/02 TSH 2.58, free T4 0.86 11/02/16 04:01 11/02/16 04:01 INR on the date of discharge 1.73 - Radiology Radiology: Chest x-ray on admission: Hazy airspace disease in the lower lobes posteriorly on the lateral view, greater on the right. Upper lung delaney are grossly clear. No pneumothorax or definite effusion. Prior sternotomy. Cardiac silhouette is mildly enlarged. Mediastinal contours are normal. Pulmonary vascularity appears somewhat prominent. IMPRESSION: Mild pulmonary edema with lower lobe atelectasis versus pneumonia. Chest x-ray on 11/01/16: There is been interval resolution of the pulmonary vascular congestion and mild interstitial edema. There are again noted streaky/hazy opacities at both lung bases consistent with atelectasis/infiltrate. There has been interval development of a small left pleural effusion. The right costophrenic angle is clear. The bony thorax is stable with median sternotomy wires in place. IMPRESSION: 1. Persistent bibasilar atelectasis/infiltrate. 2. Small left pleural effusion has developed in the interval. 3. Resolving congestive changes. Noncontrast CT head on 10/31/16: Mild generalized atrophy. The ventricles are of normal size, shape, and contour for the patient's age. There are scattered areas of low attenuation in the white matter which most likely represent changes from chronic microvascular ischemia. The brainstem, cerebellum, and cerebral hemispheres otherwise have a normal morphology and CT attenuation. There is no evidence of midline displacement. No hemorrhage, signs of acute territorial stroke, mass effect, mass lesions, or edema is evident. The visualized portions of the skull base, midface, and calvarium demonstrate no abnormality. The paranasal sinuses are well aerated and free of significant disease. The tympanic and mastoid cavities appear normal. IMPRESSION: No acute intracranial abnormality or hemorrhage. History of Present Illness HPI: Mr. Solares is an 89-year-old male who lives independently. He describes awakening at 4 AM short of breath when he got up to the bathroom. In retrospect he recalls having a similar milder episode the night before which lasted briefly and resolve spontaneously. Earlier this morning the episode persisted prompting him to call EMS at about 4:30. When EMS arrived he was found to be in atrial fibrillation with RVR and he was transported to the emergency room for management. The patient denies palpitations, chest pain, cough, fever, wheezing , recent sputum production, exertional dyspnea, or PND. It should be noted that the patient has difficulty providing history and is confused about medications and what changes have been made when. The patient reports he was recently started on warfarin but does not recognize the name atrial fibrillation. He had a stress test with Dr. Ivory several weeks ago after which Dr. Vargas resumed atenolol at 12.[address] Ivory had previously discontinued for bradycardia. Patient reports that a Holter monitor has been done recently but that the monitor is still sitting in his car waiting to be returned. His son reports that the patient has had increased confusion for a number of weeks causing concern for family members but the patient does not acknowledge any problems. Patient was unable to clearly identify what medications he takes or dosing nor could he tell me what medications for. Hospital Course This is a general summary of the patient's hospital course. For more details refer to the complete medical record. Hospital course: Impression A. fib with RVR 158 , now rate controlled Tachybradycardia syndrome CHF/ mild pulm edema Altered mental status, progressive over several months CAD s/p CABG 26 yrs ago Aortic stenosis, severe Recent bradycardia Diabetes mellitus with nephropathy/proteinuria; A1c 7.3 CKD stage III Normocytic anemia Hyperthyroid, free T4 0.86 Leukocytosis Hospital course Mr. Solares presented to the emergency room with acute dyspnea and atrial fibrillation with rapid ventricular response. Initial rate identified by EMS is uncertain although in the emergency room rates of 110-122 were reported. He received a single dose of 15 mg IV diltiazem in the ER and heart rate slowed for the next 15 hours after which rate accelerated to 140-158 and 20 mg IV diltiazem was administered with prompt slowing after which rate remained stable. The patient was gently diuresed due to mild heart failure and required supplemental oxygen throughout the hospital course. He had no further episodes of acute dyspnea and weight was down 2.[address] Jose Ivory saw the patient in consultation and recommended transfer to [place] for consideration of RADHA/DC CV and pacemaker implantation. The patient may be a candidate for cardiac catheterization and TAVR although the more immediate issue is stabilization of cardiac rhythm. Anticoagulation with warfarin had been initiated several weeks prior to hospitalization; INR was subtherapeutic on admission and he received a single dose of 5 mg warfarin on 10/31 after which warfarin was held anticipating possible procedure. INR was slightly higher at discharge then on arrival. There is significant uncertainty as to patient's compliance with medications at home due to confusion he demonstrated and his inability to clarify what medications he was taking. Family members reported increased confusion for a number of months and I expressed my concern that the patient cannot safely live independently as he has previously. ISACC testing was scheduled but not completed prior to transfer to [place]. Family is looking at transfer from independent living to senior care or assisted living at [facility] in [place] with the patient's is a resident. CT of the head is unremarkable. Plans were made for transfer to [place] on 11/02. Patient denied any difficulty with dyspnea at this time and continues to deny palpitations or chest pain. He is in no distress prior to transfer and hemodynamically stable with heart rate of 90 and blood pressure 147/74. Patient has been afebrile throughout the hospitalization. Breath sounds are somewhat diminished throughout with faint crackles at the bases. Cardiac rhythm is irregular prominent systolic murmur heard throughout the precordium. Plans were discussed with both Dr. Jose Ivory and Dr. Jonnie Ivory. The patient 's son/SERA Vergara was notified of plans for transfer. Time spent with patient: discharge greater than 30 minutes DVT Prophylaxis: Lovenox Discharge Plan - Med Rec/Dispo Referrals/Follow Up: Jonnie Ivory MD [Physician] - (As instructed by Dr. Ivory when released from [place]) Rodolfo Vargas MD [Family Provider] - (After discharge from [place]) Anoop Instructions: A-fib (Atrial Fibrillation) (GEN) Prescriptions: New Metoprolol IV [Lopressor] 5 mg IVP Q5M PRN vial PRN Reason: continued afib Carvedilol [Coreg] 3.125 mg PO BIDWM tablet Enoxaparin Sodium [Lovenox] 100 mg SQ Q12H syringe Continue atorvastatin 40 mg tablet 40 mg PO DAILY #0 tab amlodipine 5 mg tablet 5 mg PO BID #0 tab uolfqznd-oqd-ersgw acid 300 mcg-lycopene 600 mcg-lutein 300 mcg tablet 1 tab PO DAILY tab tadalafil 10 mg tablet 10 mg PO .DAILY PRN tab PRN Reason: sexual activity omega-3 fatty acids 1,000 mg capsule 1,000 mg PO DAILY cap vit A 1,000 unit-C 200 mg-E 60 unit-lutein 2 mg and minerals tablet 1 tab PO DAILY tab Lantus (insulin glargine) 100 unit/mL SQ 30 unit SQ QAM ml methimazole 10 mg tablet 5 mg PO QAM tab nitroglycerin 0.4 mg sublingual tablet 0.4 mg SL Q5M PRN aspirin 81 mg tablet,delayed release 81 mg PO DAILY tab cholecalciferol (vitamin D3) 2,000 unit capsule 2,000 unit PO DAILY cap Discontinued atenolol 25 mg tablet 12.5 mg PO BID #0 tab warfarin 5 mg tablet 5 mg PO DAILY #90 tab Discharge Instructions/Outpatient Orders: Final Provider Discharge Instructions Location: Determined By Patient - Disposition 02 To [facility] Acute Care
[2016-11-02 11:33] VITALS: BP 146/71; PULSE 92; RESP 18; TEMP 97.8; O2SAT 89
--- NOTE | 2016-11-03 12:40 | Cardiology Progress Note ---
Subjective Interval history: Late entry patient seen 11/02/2016 about 8:30 AM Patient's feeling better denies chest pain or pressure easier to breathe denies palpitations or dizziness. He has been established with Dr. Jorge Ivory for for 25 years and would like his opinion on every aspect of cardiac management. Dr. Cristina feels that his memory is been declining for the past year and he has some dementia. He's been trying to manage tachybradycardia syndrome conservatively for some time before he took him off atenolol few months ago, early in August there about, only to be restarted by Dr. Vargas now needing admission tachycardia requiring IV diltiazem. Dr. Cristina did not advise for immediate cardioversion or heart catheter and patient's general decline. He might consider cardioversion with a pacemaker in place this on his clinical course. Exam Vital signs: Temperature 97.8 F 11/02/16 11:31 Pulse Rate 92 11/02/16 11:31 Respiratory Rate 18 11/02/16 11:31 Blood Pressure 146/71 H 11/02/16 11:31 Pulse Oximetry 89 L 11/02/16 11:31 Oxygen Delivery Method Room Air Oxygen Flow Rate 3 - Constitutional no acute distress - Routine HEENT Exam Head: Present: normocephalic, atraumatic Eye: Present: EOMI, PERRL ENT: Present: mucous membranes moist - Routine Neck Exam Absent: JVD, carotid bruit - Routine Respiratory Exam Present: CTA bilaterally - Routine Cardiovascular Exam Present: murmur (Harsh 3-4/6 late peaking severity decreased A2), irregularly irregular - Routine Abdominal Exam Present: soft, normoactive bowel sounds, non distended, non tender - Routine Extremities Exam Present: edema (1-2+ bilateral ankle). Absent: cyanosis, clubbing - Routine Skin Exam Present: intact, dry. Absent: cyanosis, erythema - Routine Neurological Exam Present: alert, oriented X3, CN II-XII intact, moving all extremities, normal speech. Absent: motor deficit, facial asymmetry - Routine Psychiatric Exam Present: normal affect, cooperative, good insight, good judgment Progress Note-A&P (1) Aortic stenosis, severe Status: Acute (2) Congestive heart failure (CHF) Status: Acute (3) Atrial fibrillation with RVR Status: Acute (4) Coronary artery disease Problem details: Remote CABG Status: Acute (5) Tachy-karol syndrome Status: Acute (6) Diabetes mellitus Problem details: A1c 8.4 on 07/10/16 Status: Chronic (7) HTN (hypertension) Status: Chronic (8) Hyperlipidemia Status: Chronic - Time Spent With Patient Total time spent is greater than 50% in coordination of care (as documented) at patient's floor/unit and/or counseling patient: greater than 35 minutes Sepsis Assessment - Evaluation Sepsis screening result: No Definite Risk Hospital Course Summary Disclaimer: The visit summary below is not to be considered part of the above Progress Note. Hospital Course: Impression A. fib with RVR 158 , now rate controlled Tachybradycardia syndrome CHF/ mild pulm edema Altered mental status, progressive over several months CAD s/p CABG 26 yrs ago Aortic stenosis, severe Recent bradycardia Diabetes mellitus with nephropathy/proteinuria; A1c 7.3 CKD stage III Normocytic anemia Hyperthyroid, free T4 0.86 Leukocytosis A lengthy discussion with the patient he prefers to sit with his long standing undergraduate advisor Dr. ori Ivory We'll transfer to [place]. Also discussed with Dr. Ori Ivory and with Dr. Lisandro Yee and we feel a given his severe cardiac disease and patient's preference proceed with a transfer.
== END 2016-11-02 11:40 | disposition short-term general hospital (02) | DRG 309 ==
LOC: MED 05:01 → ED 05:01 → MED 07:00
PROVIDERS: ADMIT Emergency Medicine; ATTEND Internal Medicine